=== PATIENT | male | born 1945 | race Caucasian/White ===

== ENCOUNTER 2020-05-20 10:49 | Outpatient (REF) | payer MEDICARE, SELFPAY | END 2020-05-20 10:50 | disposition home or self-care (01) | LOC: HO.LNP 10:49 | PROVIDERS: Visit Provider Internal Medicine | DX: Z20.828 Contact with and (suspected) exposure to other viral communicable diseases (principal) | CPT/HCPCS: U0003 ==

== ENCOUNTER 2020-06-18 14:29 | Outpatient (REF) | payer MEDICARE, SELFPAY ==
[2020-06-18 15:54] LABS: Influenza A PCR NEGATIVE (Negative); Influenza B PCR NEGATIVE (Negative); Resp Syncy Virus RNA Qual PCR NEGATIVE (Negative); SARS COV2 PCR INHOUSE NEGATIVE (Negative)
== END 2020-06-18 14:30 | disposition home or self-care (01) ==
LOC: HO.LNP 14:29
PROVIDERS: Visit Provider Internal Medicine
DX: Z20.828 Contact with and (suspected) exposure to other viral communicable diseases (principal)
CPT/HCPCS: 0241U

== ENCOUNTER 2021-04-09 09:05 | Emergency (ER) | payer MEDICARE, SELFPAY ==
--- NOTE | ~2021-04-09 | XR_ITS ---
EXAMINATION: XR SHOULDER, RIGHT CLINICAL INFORMATION: Fall, trauma, pain COMPARISON: None TECHNIQUE: Right shoulder is imaged in 4 views. FINDINGS: There is no fracture or dislocation or destructive process. There are mild degenerative changes glenohumeral joint with small spur inferior medial humeral head. There is some borderline spurring greater tuberosity. No visible rotator cuff calcifications. Right lung apex is well expanded and shows no pneumothorax or pleural reaction. XR/XR shoulder RT min 2V IMPRESSION: No fracture or dislocation.
[2021-04-09 09:19] VITALS: BP 117/57; PULSE 84; RESP 18; TEMP 36.5; O2SAT 96; BMI 25.0
--- NOTE | 2021-04-09 10:44 | ED_ITS ---
HPI - Extremity Problem General Chief complaint: Extremity Injury, Upper Stated complaint: rt shoulder pain - fall Time Seen by Provider: 04/09/21 10:44 Source: patient Limitations: no limitations History of Present Illness HPI Narrative: This is a 75-year-old male who tripped on the lawn this morning fell on his right shoulder. The patient cannot recall whether he broke his fall with his arm 1st or fell directly on his shoulder but he has pain around his lateral shoulder. Denies any head injury or neck pain. Denies any chest pain or shortness of breath. He denies any numbness or weakness or tingling in his right arm or hand. He has not noted any swelling to the area. He is not on any anticoagulants. Pain is moderate in severity, worse with arm elevation, aching Related Data Previous Rx's Medication Instructions Recorded ibuprofen 600 mg tablet 600 mg PO Q6H PRN #30 tab 04/09/21 Allergies Allergy/AdvReac Type Severity Reaction Status Date / Time niacin Allergy Intermediate RASH Verified 04/09/21 09:19 [From NIASPAN EXTENDED-RELEASE] Review of Systems Constitutional: Constitutional: Denies headache(s) ENT: Denies headache(s) Cardiovascular: Cardiovascular: Reports no additional cardiovascular complaints Respiratory: Respiratory: Reports no additional respiratory complaints Gastrointestinal: Gastrointestinal: Reports no additional gastrointestinal complaints Musculoskeletal: Musculoskeletal: Reports no additional musculoskeletal complaints Neurologic: Denies headache(s) [facility] Social History Social History Advance Directives: No Physical Exam Vital Signs: Vital Signs: Last Vital Signs Temp 97.7 F 04/09/21 09:19 Pulse 84 04/09/21 09:19 Resp 18 04/09/21 09:19 BP 117/57 L 04/09/21 09:19 Pulse Ox 96 04/09/21 09:19 Body Mass Index 25.0 Const: Other: Patient well-appearing, no distress, moves easily HENMT: Head: Yes normal to inspection Eyes: General: appearance normal, both eyes and all related structures Resp: Effort & Inspection: normal respiratory effort Auscultation: clear to auscultation bilaterally Cardio: Rhythm: regular rhythm Heart sounds: S1 normal heart sound present, S2 normal heart sound present, no gallops, no murmurs and no rubs Extrem: Other: Right shoulder with no point tenderness over the clavicle, AC joint, or glenohumeral joint. There is tenderness to the lateral shoulder over the humeral head but no ecchymosis, swelling, deformity. Humeral shaft, elbow, forearm, wrist, and hand atraumatic, nontender. Right hand neurovascular intact General: Yes normal to inspection MDM - Extremity (Nontraumatic) MDM Narrative Medical decision making narrative: Patient with a fall, injured right shoulder, has pain with movement. X-ray negative. Exam normal except for point tenderness over the humeral head. Recommend sling immobilization and ice pack, ibuprofen for 3-4 days, follow-up with orthopedics if not improved. Likely contusion, less likely rotator cuff tear. Imaging Data Shoulder x-ray: Radiologist's impression: FINDINGS: There is no fracture or dislocation or destructive process. There are mild degenerative changes glenohumeral joint with small spur inferior medial humeral head. There is some borderline spurring greater tuberosity. No visible rotator cuff calcifications. Right lung apex is well expanded and shows no pneumothorax or pleural reaction.? XR/XR shoulder RT min 2V IMPRESSION: No fracture or dislocation. Discharge Plan Discharge Clinical Impression: Contusion of shoulder, right Patient Disposition: Home, Self-Care Instructions: Contusion in Adults (ED) Additional Instructions: Wear the sling, and take ibuprofen as prescribed. Use an ice pack off and on. Try to rest the shoulder for the next 3-4 days. If still having significant pain in 4-5 days, follow-up with orthopedics. Rotator cuff tear cannot be ruled out with an x-ray, however given the nature of her fall and your area of tenderness, this seems more likely to be a contusion Prescriptions: New ibuprofen 600 mg tablet 600 mg PO Q6H PRN (Reason: pain) Qty: 30 RF: 0 Referrals: Jessica Chawla MD [Physician] - 1 week (As needed, if not improved) Interventions: ED Discharge Assessment Last Done: 04/09/21 10:55 Discharge Date/Time: 04/09/21 10:56
== END 2021-04-09 10:56 | disposition home or self-care (01) ==
PROVIDERS: Emergency Provider Emergency Medicine; PCP Internal Medicine
DX: S40.011A Contusion of right shoulder, initial encounter (principal); W01.0XXA Fall on same level from slipping, tripping and stumbling without subsequent striking against object, initial encounter; Y93.9 Activity, unspecified; Y92.89 Other specified places as the place of occurrence of the external cause; Y99.9 Unspecified external cause status
CPT/HCPCS: 73030; 99283

== ENCOUNTER 2021-10-05 00:23 | Emergency (ER) | payer MEDICARE, SELFPAY ==
--- NOTE | ~2021-10-05 | CT_ITS ---
EXAMINATION: CT SOFT TISSUE NECK WITH CONTRAST CLINICAL INFORMATION: Sore throat, rule out abscess COMPARISON: None TECHNIQUE: Following the intravenous administration of 60 mL of Omnipaque 350 intravenous contrast, helical imaging was performed in the axial plane with generation of coronal and sagittal reformatted images. This CT examination was performed using dose optimization techniques as appropriate, variously including the following: *Automated exposure control *Adjustment of mA and/or kV according to patient size (this includes techniques or standardized protocols for targeted exams where dose is matched to indication/reason for exam; i.e. extremities or head) *Use of iterative reconstruction technique DLP: 646 mGy-cm FINDINGS: No cervical adenopathy is identified. The parotid glands are homogeneous in attenuation. The submandibular glands are normal. Evaluation in the peritonsillar regions is limited due to streak artifact from dental hardware; no definite abscess is seen given this limitation. No retropharyngeal fluid collection is seen. Epiglottis appears unremarkable. The laryngeal structures appear unremarkable. The parapharyngeal fat is preserved. There are calcifications of the bilateral common carotid artery bifurcations which does not appear to result in significant stenosis. No extra mucosal soft tissue mass or fluid collection is seen. The thyroid gland is unremarkable. The superior mediastinum is unremarkable. There is a 3 mm right apical nodule on image 318/406. Tiny left upper lobe nodules appear calcified, favoring granulomas. The mastoid air cells and visualized portions of the paranasal sinuses are well-aerated. The temporomandibular joints are normal. There are moderate to severe degenerative changes in the cervical spine including disc space narrowing, endplate osteophyte formation, and facet arthropathy. The imaged portions of the brain parenchyma are unremarkable. CT/CT soft tissue neck w con IMPRESSION: 1. Limited assessment of the peritonsillar regions due to streak artifact from dental hardware. No definite abscess is seen this setting; however, if symptoms persist/worsen, consider short-term follow-up imaging. 2. Right apical 3 mm lung nodule. According to the UPDATED 2017 Fleischner Society recommendations, the advised follow-up imaging for solid nodules < 6 mm is: LOW RISK PATIENT: No routine follow-up. HIGH RISK PATIENT: Optional CT at 12 months.
[2021-10-05 01:14] VITALS: BP 141/83; PULSE 82; RESP 18; TEMP 37; O2SAT 96; BMI 31.9
--- NOTE | 2021-10-05 01:14 | ED.GENADULT ---
HPI - General Adult General Chief complaint: Upper Respiratory Symptoms Stated complaint: sorethroat Time Seen by Provider: 10/05/21 01:12 Source: patient Mode of arrival: ambulatory Limitations: no limitations History of Present Illness HPI narrative: 76 years old male came in for evaluation of sore throat. Sore throat for 1 day, no fever chills, no sick contact, patient is up-to-date on his COVID vaccination, no recent travel. No drooling, no shortness of breath, no coughing. Related Data Previous Rx's Medication Instructions Recorded ibuprofen 600 mg tablet 600 mg PO Q6H PRN #30 tab 04/09/21 Allergies Allergy/AdvReac Type Severity Reaction Status Date / Time niacin Allergy Intermediate RASH Verified 04/09/21 09:19 [From NIASPAN EXTENDED-RELEASE] Review of Systems Review of Systems: All other systems are reviewed and are negative Constitutional: Reports as per HPI and Reports no additional constitutional complaints Eyes: Reports as per HPI and Reports no additional eye complaints Reports system reviewed and no additional complaints, except as documented Cardiovascular: Reports as per HPI and Reports no additional cardiovascular complaints Respiratory: Reports as per HPI and Reports no additional respiratory complaints Gastrointestinal: Reports as per HPI and Reports no additional gastrointestinal complaints Genitourinary: Reports no additional female genitourinary complaints Musculoskeletal: Reports no additional musculoskeletal complaints Skin/Breast: Reports system reviewed and no additional complaints, except as docu Psychiatric: Reports no additional psychiatric complaints Endocrine: Reports no additional endocrine complaints Hematologic/Lymphatic: Reports no additional hematologic/lymphatic complaints Allergic/Immunologic: Reports no additional allergic/immunologic complaints Reports system reviewed and no additional complaints, except as documented and Reports Abnormal speech present [facility] Past Medical History Medical History (Updated 10/05/21 @ 03:56 by Lizzeth Davis MD) No known health problems Surgical History (Updated 10/05/21 @ 01:23 by Ariella Merino) No history of previous surgery Social History Social History Alcohol intake: never Patient Tobacco Use Status: Never used Tobacco Use of substances other than those prescribed or required for medical reasons: No Advance Directives: No Advance Directives Information Provided: No Physical Exam ED Vital Signs: Vital Signs - 24 hr 10/05/21 01:14 10/05/21 02:00 10/05/21 02:28 Temperature 98.6 F 98.9 F Pulse Rate 82 78 Respiratory Rate 18 12 Blood Pressure 141/83 H 124/86 Pulse Oximetry 96 95 95 BMI result Body Mass Index 31.9 Vital signs have been reviewed as appeared to be correct. Blood pressure normal. Heart rate normal. Respiration rate normal. Temperature normal. Oxygen saturation normal. Appearance: Alert. Oriented X3. No acute distress. Head: Normal external exam. Normocephalic. Atraumatic. No Gonzalez signs noted. No raccoon eyes noted Eyes: PERRLA. EOMI. Conjunctiva and sclera normal. Eyelids normal. ENT: TM's Normal. Pharynx normal. Uvula midline. Moist mucous membranes. No trismus noted. No drooling noted. No muffled voice noted. Neck: Normal inspection. Neck supple. FROM. No adenopathy. Thyroid Normal. No meningeal signs. No neck mass noted. CVS: Normal heart rate and rhythm. Heart sound normal. No murmurs noted. Pulses normal throughout. Respiratory: No respiratory distress. Painless inspiration. Breath sounds normal. No wheezes/rales/rhonchi noted. Chest nontender. No accessory muscle usage noted or decreased air movement noted. Abdomen: Soft and nontender. Bowel sounds normal in all 4 quadrants. No distention noted. No organomegaly noted. No visible injury noted. Back: No CVA tenderness. Full range of motion noted. Skin: Skin warm and dry. Normal skin color. Normal skin turgor. No rashes/lesions/lacerations noted. Extremities: No lower extremity edema. Extremities exhibit normal range of motion. Extremities nontender. Neuro: Oriented X 3. Cranial nerve exam: II-XII are grossly intact No motor deficit. No sensory deficit. Reflexes normal. Course Course Course Narrative: Assessment and plan. 76-year-old male came in for evaluation of sore throat, patient has a negative strep, negative RSV, negative flu, CT of the neck limited due to artifact of a dental denture but no neck abscess and patent airway. Will reassure recommend NSAIDs for symptoms. Medical Decision Making Lab Data Lab results reviewed: Yes I reviewed the patient's lab results. Result diagrams: 10/05/21 01:55 10/05/21 01:55 Labs: Lab Results 10/05/21 10/05/21 10/05/21 Range/Units 01:55 01:55 01:55 WBC 8.6 (4.8-10.8) X10*3/uL RBC 3.89 L (4.60-5.80) X10*6/uL Hgb 12.5 L (14.0-18.0) g/dl Hct 36.6 L (42.0-52.0) % MCV 94.1 (80.0-98.0) fL MCH 32.1 (27.0-33.0) pg MCHC 34.2 (31.0-36.0) g/dl RDW 11.9 (11.0-16.0) % Plt Count 157 L (160-400) X10*3/uL MPV 10.4 (9.4-12.4) fL Immature Gran % (Auto) 0.3 (0.0-0.4) % Neut % (Auto) 68.9 (45-73) % Lymph % (Auto) 16.2 L (20-40) % [place] % (Auto) 9.9 (2-11) % Eos % (Auto) 4.1 H (0-4) % Baso % (Auto) 0.6 (0-2) % Lymph # (Auto) 1.4 (1.2-4.9) X10*3/uL [place] # (Auto) 0.9 (0.1-1.2) X10*3/uL Eos # (Auto) 0.4 (0.0-0.4) X10*3/uL Baso # (Auto) 0.1 (0.0-0.2) X10*3/uL Abs Immat Gran (auto) 0.03 (0.00-0.03) X10*3/uL Absolute Neuts (auto) 5.9 (2.0-8.3) x10*3/uL Absolute Nucleated RBC 0.000 (0.0-0.012) X10*3/uL Nucleated RBC % (auto) 0.0 (0.0-0.2) /100WBC Sodium 138 (135-145) mmol/L Potassium 4.2 (3.3-5.1) mmol/L Chloride 108 (96-108) mmol/L Carbon Dioxide 23 (22-29) mmol/L Anion Gap 11 L (12-20) BUN 25 H (9-16) mg/dL Creatinine 0.98 (0.5-1.4) mg/dL Estim Creat Clear Calc 74.0 Estimated GFR > 60 Random Glucose 124 H (60-115) mg/dL Calcium 8.8 (8.4-10.2) mg/dL Troponin I High Sens 3.9 (<3.5-35.0) ng/L Influenza Type A (PCR) (Negative) Influenza Type B (PCR) (Negative) RSV RNA Qual (PCR) (Negative) SARS-CoV-2 RNA (RT-PCR) (Negative) S. pyogenes GrpA HERNANDEZ (Negative) 10/05/21 10/05/21 Range/Units 01:55 01:55 WBC (4.8-10.8) X10*3/uL RBC (4.60-5.80) X10*6/uL Hgb (14.0-18.0) g/dl Hct (42.0-52.0) % MCV (80.0-98.0) fL MCH (27.0-33.0) pg MCHC (31.0-36.0) g/dl RDW (11.0-16.0) % Plt Count (160-400) X10*3/uL MPV (9.4-12.4) fL Immature Gran % (Auto) (0.0-0.4) % Neut % (Auto) (45-73) % Lymph % (Auto) (20-40) % [place] % (Auto) (2-11) % Eos % (Auto) (0-4) % Baso % (Auto) (0-2) % Lymph # (Auto) (1.2-4.9) X10*3/uL [place] # (Auto) (0.1-1.2) X10*3/uL Eos # (Auto) (0.0-0.4) X10*3/uL Baso # (Auto) (0.0-0.2) X10*3/uL Abs Immat Gran (auto) (0.00-0.03) X10*3/uL Absolute Neuts (auto) (2.0-8.3) x10*3/uL Absolute Nucleated RBC (0.0-0.012) X10*3/uL Nucleated RBC % (auto) (0.0-0.2) /100WBC Sodium (135-145) mmol/L Potassium (3.3-5.1) mmol/L Chloride (96-108) mmol/L Carbon Dioxide (22-29) mmol/L Anion Gap (12-20) BUN (9-16) mg/dL Creatinine (0.5-1.4) mg/dL Estim Creat Clear Calc Estimated GFR Random Glucose (60-115) mg/dL Calcium (8.4-10.2) mg/dL Troponin I High Sens (<3.5-35.0) ng/L Influenza Type A (PCR) NEGATIVE (Negative) Influenza Type B (PCR) NEGATIVE (Negative) RSV RNA Qual (PCR) NEGATIVE (Negative) SARS-CoV-2 RNA (RT-PCR) NEGATIVE (Negative) S. pyogenes GrpA HERNANDEZ Negative (Negative) Imaging Data Soft tissue neck CT: Attestation: I personally reviewed and interpreted this imaging study as follows: Radiologist's impression: 1.? Limited assessment of the peritonsillar regions due to streak artifact from dental hardware. No definite abscess is seen this setting; however, if symptoms persist/worsen, consider short-term follow-up imaging. 2.? Right apical 3 mm lung nodule. According to the UPDATED 2017 Fleischner Society recommendations, the advised follow-up imaging for solid nodules < 6 mm is: Discharge Plan Discharge Clinical Impression: Pharyngitis Patient Disposition: Home, Self-Care Instructions: Pharyngitis (ED) Prescriptions: No Action ibuprofen 600 mg tablet 600 mg PO Q6H PRN (Reason: pain) Qty: 30 0RF Referrals: Froy Fernando MD [Primary Care Provider] -
[2021-10-05 02:00] VITALS: O2SAT 95
[2021-10-05 02:05] LABS: MANUAL DIFF FLAG NO
[2021-10-05 02:06] LABS: Basophils Absolute Auto 0.1 X10*3/uL (0.0-0.2); Basophils Percent Auto 0.6 % (0-2); Eosinophils Absolute Auto 0.4 X10*3/uL (0.0-0.4); Eosinophils Percent Auto 4.1 % (0-4); Hematocrit 36.6 % (42.0-52.0); Hemoglobin 12.5 g/dl (14.0-18.0); Imm Gran Abs Auto 0.03 X10*3/uL (0.00-0.03); Imm Gran Pct Auto 0.3 % (0.0-0.4); Lymphocytes Absolute Auto 1.4 X10*3/uL (1.2-4.9); Lymphocytes Percent Auto 16.2 % (20-40); Mean Corpuscular HGB Conc 34.2 g/dl (31.0-36.0); Mean Corpuscular Hemoglobin 32.1 pg (27.0-33.0); Mean Corpuscular Volume 94.1 fL (80.0-98.0); Mean Platelet Volume 10.4 fL (9.4-12.4); Monocytes Absolute Auto 0.9 X10*3/uL (0.1-1.2); Monocytes Percent Auto 9.9 % (2-11); Neutrophils Absolute Auto 5.9 x10*3/uL (2.0-8.3); Neutrophils Percent Auto 68.9 % (45-73); Platelet Count 157 X10*3/uL (160-400); Red Blood Count 3.89 X10*6/uL (4.60-5.80); Red Cell Distribution Width 11.9 % (11.0-16.0); White Blood Count 8.6 X10*3/uL (4.8-10.8)
[2021-10-05 02:10] LABS: Strep A Nucleic Acid Negative (Negative)
[2021-10-05 02:20] LABS: Anion Gap 11 (12-20); Blood Urea Nitrogen 25 mg/dL (9-16); Calcium 8.8 mg/dL (8.4-10.2); Carbon Dioxide 23 mmol/L (22-29); Chloride 108 mmol/L (96-108); Estimated Glomerular Filt Rate > 60; Glucose Random 124 mg/dL (60-115); Potassium 4.2 mmol/L (3.3-5.1); Sodium 138 mmol/L (135-145)
[2021-10-05 02:27] LABS: Troponin-I High Sensitivity 3.9 ng/L (<3.5-35.0)
[2021-10-05 02:28] VITALS: BP 124/86; PULSE 78; RESP 12; TEMP 37.2; O2SAT 95
[2021-10-05 02:44] LABS: Influenza A PCR NEGATIVE (Negative); Influenza B PCR NEGATIVE (Negative); Resp Syncy Virus RNA Qual PCR NEGATIVE (Negative); SARS COV2 PCR INHOUSE NEGATIVE (Negative)
[2021-10-05] MEDS: iohexoL 350 MG/ML 100 ML INFUS..BTL 60 ML IV (02:46)
== END 2021-10-05 04:06 | disposition home or self-care (01) ==
PROVIDERS: Emergency Provider Emergency Medicine; PCP Internal Medicine
DX: J02.9 Acute pharyngitis, unspecified (principal); Z20.822 Contact with and (suspected) exposure to COVID-19
CPT/HCPCS: 0241U; 36415; 70491; 80048; 84484; 85025; 87651; 99284; 99285; Q9967

== ENCOUNTER 2022-07-05 05:53 | Emergency (ER) | payer MEDICARE, SELFPAY ==
[2022-07-05 05:58] VITALS: BP 140/78; PULSE 79; RESP 18; TEMP 36.6; O2SAT 96; BMI 33.4
--- OUTSIDE RECORDS SUMMARY | 2022-07-05 06:16 | XMS_ITS | Continuity of Care Document ---
:1945 Author Organization [facility] Address [address] [place] [phone]- Care Team Providers Name Role Phone Froy Fernando MD Primary Care Physician [place] [facility] [place]): 05/05/20 - 06/04/20 [facility] [address] [place] [id number] Allergies, Adverse Reactions, Alerts Substance Reaction Severity Status Niaspan ER Active Medications aspirin buffered 325 mg oral tablet 1 tablet = 325 mg, By Mouth, Every 4 hours, 0 Refills, Maintenance Start Date: 10/16/12 Status: Orderedatorvastatin 80 mg oral tablet 1 tablet = 80 mg, By Mouth, Daily at bedtime, # 90 tablet, 3 Refills, Maintenance, 09/17/19 16:35:00EDT, Tablet, [facility], 173, cm, 09/02/19 14:38:00 EDT, Height, 91.3, kg, 09/02/19 14:38:00 EDT, Dry Weight Start Date: 09/17/19 Stop Date: 09/11/20 Status: Orderedchlorhexidine topical 0.12% liquid 15 mL = 0.018 Gm, By Mouth, Daily in AM, 0 Refills, Maintenance, 05/29/14 15:27:16 Start Date: 05/29/14 Status: OrderedCialis 20 mg oral tablet 1 tablet = 20 mg, By Mouth, Daily, PRN erectile dysfunction, as needed only half of the tablet in 24hours. do not take it if any angina, # 10 tablet, 3 Refills, Maintenance, 04/05/18 9:54:48 EDT, Tablet Start Date: 04/05/18 Status: OrderedCranberry 0 Refills, Maintenance, 11/05/15 9:29:09 Start Date: 11/05/15 Status: OrderedFish Oil 1000 mg oral capsule 1 capsule = 1,000 mg, By Mouth, Daily, 0 Refills, Maintenance Start Date: 06/23/12 Status: Orderedlisinopril 5 mg oral tablet 5 mg, 1, tablet, By Mouth, Daily, # 90 tablet, Refills 3, Tot. Refills 3, Maintenance, 09/17/19 16:35:00 EDT, Route to Pharmacy Electronically, [facility], 173, cm, 09/02/19 14:38:00 EDT, Height, 91.3, kg, 09/02/19 14:38:00 EDT, Dry Weight Start Date: 09/17/19 Stop Date: 09/11/20 Status: Orderedmetoprolol 100 mg oral tablet, extended release 150 mg, 1.5, tablet, By Mouth, Daily, # 135 tablet, Refills 3, Tot. Refills 3, Maintenance, 10/02/2012:03:00 EDT, Route to Pharmacy Electronically, [facility], 173, cm, 09/02/19 14:38:00 EDT, Height, 91.3, kg, 09/02/19 14:38:00 EDT, Dry... Start Date: 10/03/19 Stop Date: 09/27/20 Status: OrderedPrevident 1 applicator, Topically, Daily at bedtime, 0 Refills, Maintenance, 05/29/14 15:27:22 Start Date: 05/29/14 Status: OrderedZetia 10 mg oral tablet 1 tablet = 10 mg, By Mouth, Daily, # 90 tablet, 3 Refills, Maintenance, 02/06/20 12:42:00 EDT, Tablet, [facility], 173, cm, 09/02/19 14:38:00 EDT, Height, 91.3, kg, 09/02/19 14:38:00 EDT, Dry Weight Start Date: 02/06/20 Stop Date: 01/31/21 Status: Ordered Problem List Condition Effective Dates Status Health Status Informant Coronary artery disease(Confirmed) Active Hyperlipidemia(Confirmed) Active Old myocardial infarction(Confirmed) Active Social History Social History Type Response Smoking Status Never smoker; Tobacco user i n household: No entered on: 04/05/18 Sex
--- OUTSIDE RECORDS SUMMARY | 2022-07-05 06:16 | XMS_ITS | Continuity of Care Document ---
:1945 Author Organization [facility] Address [address] [place] [phone]- Care Team Providers Name Role Phone Froy Fernando MD Primary Care Physician Encounter [facility] [place] Date(s): 08/08/20 - 09/07/20 [facility] [address] [place] [id number] Attending Physician: Arianna Sierra Admitting Physician: AdmArianna curry Referring Physician: AdmtrArianna Allergies, Adverse Reactions, Alerts Substance Reaction Severity [...] 09/17/19 16:35:00 EDT, Route to Pharmacy Electronically, [facility], 173, cm, 09/02/19 14:38:00 EDT, Height, 91.3, kg, 09/02/19 14:38:00 EDT, Dry Weight Start Date: 09/17/19 Stop Date: 09/11/20 Status: Orderedmetoprolol 100 mg oral tablet, extended release 150 mg, 1.5, tablet, By Mouth, Daily, # 135 tablet, Refills 3, Tot. Refills 3, Maintenance, 10/02/2012:03:00 EDT, Route to Pharmacy Electronically, [facility] #[facility], 173, cm, 09/02/19 14:38:00 EDT, Height, 91.3, kg, 09/02/19 14:38:00 EDT, Dry... Start Date: 10/03/19 Stop Date: 09/27/20 Status: OrderedPrevident 1 applicator, Topically, Daily at bedtime, 0 Refills, Maintenance, 05/29/14 15:27:22 Start Date: 05/29/14 Status: OrderedZetia 10 mg oral tablet 1 tablet = 10 mg, By Mouth, Daily, # 90 tablet, 3 Refills, Maintenance, 02/06/20 12:42:00 EDT, Tablet, [facility], 173, cm, 09/02/19 14:38:00 EDT, [...]
--- OUTSIDE RECORDS SUMMARY | 2022-07-05 06:16 | XMS_ITS | Continuity of Care Document ---
:1945 Author Organization [facility] Address [address] [place] [id number]- Care Team Providers Name Role Phone Froy Fernando MD Primary Care Physician [place] [facility] [place]20 [facility] [address] [place] [id number] Allergies, Adverse Reactions, Alerts Substance Reaction Severity Status Niaspan ER Active Medications aspirin buffered 325 mg oral tablet 1 tablet = 325 mg, By Mouth, Daily, 0 Refills, Maintenance, 10/16/12 11:03:18 EDT Start Date: 10/16/12 Status: Orderedatorvastatin 80 mg oral tablet 1 tablet = 80 mg, By Mouth, Daily at bedtime, # 90 tablet, 3 Refills, Maintenance, 10/22/20 11:31:00EDT, Tablet, [facility], 173, cm, 09/17/20 12:44:00 EDT, Height, 91.3, kg, 09/02/19 14:38:00 EDT, Dry Weight Start Date: 10/22/20 Stop Date: 10/17/21 Status: Orderedchlorhexidine topical 0.12% liquid 15 mL [...] 9:54:48 EDT, Tablet Start Date: 04/05/18 Status: OrderedCialis 20 mg oral tablet 1 tablet = 20 mg, By Mouth, Daily, PRN as needed for erectile dysfunction, # 5 tablet, 0 Refills, Maintenance, 09/17/20 13:00:00 EDT, Tablet, Partial fill upon patient request if the prescription is for a schedule II opioid drug. Start Date: 09/17/20 Status: OrderedCranberry 0 Refills, Maintenance, 11/05/15 9:29:09 Start Date: 11/05/15 Status: OrderedFish Oil 1000 mg oral capsule 1 capsule = 1,000 mg, By Mouth, Daily, 0 Refills, Maintenance Start Date: 06/23/12 Status: Orderedlisinopril 5 mg oral tablet 5 mg, 1, tablet, By Mouth, Daily, # 90 tablet, Refills 3, Tot. Refills 3, Maintenance, 10/23/20 15:49:00 EDT, Route to Pharmacy Electronically, [facility], 173, cm, 09/17/20 12:44:00 EDT, Height, 91.3, kg, 09/02/19 14:38:00 EDT, Dry Weight Start Date: 10/23/20 Stop Date: 10/18/21 Status: Orderedmetoprolol 100 mg oral tablet, extended release 150 mg, 1.5, tablet, By Mouth, Daily, # 135 tablet, Refills 3, Tot. Refills 3, Maintenance, 10/02/2012:03:00 EDT, Route to Pharmacy Electronically, [facility], 173, cm, 09/02/19 14:38:00 EDT, Height, 91.3, kg, 09/02/19 14:38:00 EDT, Dry... Start Date: 10/03/19 Stop Date: 09/27/20 Status: OrderedPrevident 1 applicator, Topically, Daily at bedtime, 0 Refills, Maintenance, 05/29/14 15:27:22 Start Date: 05/29/14 Status: OrderedVitamin D3 1000 intl units oral tablet 1 tablet = 1,000 International_Units, By Mouth, Daily, # 30 tablet, 0 Refills, Maintenance, 09/18/2111:48:00 EDT, Tablet, Partial fill upon patient request if the prescription is for a schedule II opioid drug. Start Date: 09/17/20 Status: OrderedVitamin D3 1000 intl units oral tablet 1 tablet = 1,000 International_Units, By Mouth, Daily, # 30 tablet, 0 Refills, Maintenance, 09/17/2112:00:00 EDT, Tablet, Partial fill upon patient request if the prescription is for a schedule II opioid drug. Start Date: 09/17/20 Status: OrderedZetia 10 mg oral tablet 1 tablet = 10 mg, By Mouth, Daily, # 90 tablet, 3 Refills, Maintenance, 10/20/20 9:47:00 EDT, Tablet, [facility], 173, cm, 09/17/20 12:44:00 EDT, Height, 91.3, kg, 09/02/19 14:38:00 EDT, Dry Weight Start Date: 10/20/20 Stop Date: 10/15/21 Status: Ordered Problem List Condition Effective Dates Status Health Status Informant Coronary artery disease(Confirmed) Active Hyperlipidemia(Confirmed) Active Old myocardial infarction(Confirmed) Active Social History Social History Type Response Smoking Status Never smoker; Tobacco user i n household: No entered on: 04/05/18 Sex
--- OUTSIDE RECORDS SUMMARY | 2022-07-05 06:16 | XMS_ITS | Continuity of Care Document ---
:1945 Author Organization [facility] Address [address] [place] [phone]- Care Team Providers Name Role Phone Froy Fernando MD Primary Care Physician Encounter [facility] Date(s): 10/22/20 - 11/21/20 [facility] [address] [place] [id number] Allergies, Adverse Reactions, Alerts Substance Reaction Severity [...] 10/23/20 15:49:00 EDT, Route to Pharmacy Electronically, [facility], 173, cm, 09/17/20 12:44:00 EDT, Height, 91.3, kg, 09/02/19 14:38:00 EDT, Dry Weight Start Date: 10/23/20 Stop Date: 10/18/21 Status: Orderedmetoprolol 100 mg oral tablet, extended release 150 mg, 1.5, tablet, By Mouth, Daily, # 135 tablet, Refills 3, Tot. Refills 3, Maintenance, 10/02/2012:03:00 EDT, Route to Pharmacy Electronically, [facility], 173, cm, 09/02/19 14:38:00 EDT, [...]
--- OUTSIDE RECORDS SUMMARY | 2022-07-05 06:16 | XMS_ITS | Continuity of Care Document ---
:1945 Author Organization [facility] Address [address] [place] [address]- Care Team Providers Name Role Phone Froy Fernando MD Primary Care Physician Encounter [facility] [place] Date(s): 12/12/20 - 01/11/21 [facility] [address] [place] [id number] Allergies, Adverse Reactions, Alerts Substance [...] 10/23/20 15:49:00 EDT, Route to Pharmacy Electronically, [facility], 173, cm, 09/17/20 12:44:00 EDT, Height, 91.3, kg, 09/02/19 14:38:00 EDT, Dry Weight Start Date: 10/23/20 Stop Date: 10/18/21 Status: Orderedmetoprolol 100 mg oral tablet, extended release 150 mg, 1.5, tablet, By Mouth, Daily, # 135 tablet, Refills 3, Tot. Refills 3, Maintenance, 12/12/2113:15:00 EDT, Route to Pharmacy Electronically, [facility], 173, cm, 09/17/20 12:44:00 EDT, Height, 91.3, kg, 09/02/19 14:38:00 EDT, Dry... Start Date: 12/12/20 Stop Date: 12/07/21 Status: OrderedPrevident 1 applicator, Topically, Daily at [...]
--- OUTSIDE RECORDS SUMMARY | 2022-07-05 06:16 | XMS_ITS | Continuity of Care Document ---
:1945 Author Organization [facility] Address [address] [place] [address]- Care Team Providers Name Role Phone Froy Fernando MD Primary Care Physician Encounter [facility] [place] Date(s): 06/23/20 - 09/07/20 [facility] [address] [place] [id number] Attending Physician: Kathy Brink NP Admitting Physician: Kathy Brink NP Allergies, Adverse Reactions, Alerts Substance Reaction Severity [...] 09/17/19 16:35:00 EDT, Route to Pharmacy Electronically, [facility], 173, cm, 09/02/19 14:38:00 EDT, Height, 91.3, kg, 09/02/19 14:38:00 EDT, Dry Weight Start Date: 09/17/19 Stop Date: 09/11/20 Status: Orderedmetoprolol 100 mg oral tablet, extended release 150 mg, 1.5, tablet, By Mouth, Daily, # 135 tablet, Refills 3, Tot. Refills 3, Maintenance, 10/02/2012:03:00 EDT, Route to Pharmacy Electronically, [facility], 173, cm, 09/02/19 14:38:00 EDT, Height, 91.3, kg, 09/02/19 14:38:00 EDT, Dry... Start Date: 10/03/19 Stop Date: 09/27/20 Status: OrderedPrevident 1 applicator, Topically, Daily at bedtime, 0 Refills, Maintenance, 05/29/14 15:27:22 Start Date: 05/29/14 Status: OrderedZetia 10 mg oral tablet 1 tablet = 10 mg, By Mouth, Daily, # 90 tablet, 3 Refills, Maintenance, 02/06/20 12:42:00 EDT, Tablet, [facility], 173, cm, 09/02/19 14:38:00 EDT, [...]
--- OUTSIDE RECORDS SUMMARY | 2022-07-05 06:16 | XMS_ITS | Continuity of Care Document ---
:1945 Author Organization [facility] Address [address] [place] [address]- Care Team Providers Name Role Phone Froy Fernando MD Primary Care Physician Encounter [facility] Date(s): 09/21/21 - 10/21/21 [facility] [address] [place] [address]- [place] Allergies, Adverse Reactions, Alerts Substance Reaction Severity [...] Maintenance, 05/29/14 15:27:16 Start Date: 05/29/14 Status: OrderedCranberry 0 Refills, Maintenance, 11/05/15 9:29:09 Start Date: 11/05/15 Status: OrderedFish Oil 1000 mg oral capsule 1 capsule = 1,000 mg, By Mouth, Daily, 0 Refills, Maintenance Start Date: 06/23/12 Status: Orderedlisinopril 2.5 mg oral tablet 2.5 mg, 1, tablet, By Mouth, Daily, # 90 tablet, Refills 3, Tot. Refills 3, Maintenance, 10/15/21 7:39:00 EDT, Route to Pharmacy Electronically, [facility], Partial fill upon patient request if the prescription is for a schedule II opioi... Start Date: 10/15/21 Stop Date: 10/10/22 Status: Orderedmetoprolol 100 mg oral tablet, extended release 150 mg, 1.5, tablet, By Mouth, Daily, # 135 tablet, Refills 3, Tot. Refills 3, Maintenance, 12/12/2113:15:00 EDT, Route to Pharmacy Electronically, [facility], 173, cm, 09/17/20 12:44:00 EDT, [...] Daily, # 90 tablet, 3 Refills, Maintenance, 01/28/21 13:49:00 EDT, Tablet Start Date: 01/28/21 Stop Date: 01/23/22 Status: Ordered Problem List Condition Effective Dates Status Health Status Informant Coronary artery disease(Confirmed) Active Hyperlipidemia(Confirmed) Active Obese class I(Confirmed) Active Old myocardial infarction(Confirmed) Active Social History Social History Type Response Smoking Status Never smoker; Tobacco user i n household: No entered on: 04/05/18 Sex
--- OUTSIDE RECORDS SUMMARY | 2022-07-05 06:16 | XMS_ITS | Continuity of Care Document ---
:1945 Author Organization [facility] Address [address] [place] [address]- Care Team Providers Name Role Phone Froy Fernando MD Primary Care Physician Encounter [facility] Date(s): 11/25/21 - 12/25/21 [facility] [address] [place] [address]- [place] Allergies, Adverse Reactions, Alerts Substance Reaction Severity Status Niaspan ER Active Medications aspirin buffered 325 mg oral tablet 1 tablet = 325 mg, By Mouth, Daily, 0 Refills, Maintenance, 10/16/12 11:03:18 EDT Start Date: 10/16/12 Status: Orderedatorvastatin 80 mg oral tablet 1 tablet = 80 mg, By Mouth, Daily at bedtime, # 90 tablet, 3 Refills, Maintenance, 11/25/21 12:25:00EDT, Tablet, [facility], 173, cm, 09/16/21 10:24:00 EDT, Height Start Date: 11/25/21 Stop Date: 11/20/22 Status: Orderedchlorhexidine topical 0.12% liquid 15 mL [...] Maintenance, 12/12/2113:15:00 EDT, Route to Pharmacy Electronically, [facility], 173, cm, [...]
--- OUTSIDE RECORDS SUMMARY | 2022-07-05 06:16 | XMS_ITS | Continuity of Care Document ---
:1945 Author Organization [facility] Address [address] [place] [address]- Care Team Providers Name Role Phone Froy Fernando MD Primary Care Physician Encounter [facility] Date(s): 10/01/21 - 11/07/21 [facility] [address] [place] [address]- Attending Physician: Óscar CARRION, Jason Admitting Physician: Óscar CARRION, Jason Referring Physician: Froy Fernando MD Allergies, Adverse Reactions, Alerts Substance Reaction Severity [...] 10/15/21 7:39:00 EDT, Route to Pharmacy Electronically, [facility], Partial fill upon patient request if the prescription is for a schedule II opioi... Start Date: 10/15/21 Stop Date: 10/10/22 Status: Orderedmetoprolol 100 mg oral tablet, extended release 150 mg, 1.5, tablet, By Mouth, Daily, # 135 tablet, Refills 3, Tot. Refills 3, Maintenance, 12/12/2113:15:00 EDT, Route to Pharmacy Electronically, [facility], 173, cm, 09/17/20 12:44:00 EDT, [...]
--- OUTSIDE RECORDS SUMMARY | 2022-07-05 06:16 | XMS_ITS | Continuity of Care Document ---
:1945 Author Organization [facility] Address [address] [place] [address]- Care Team Providers Name Role Phone Froy Fernando MD Primary Care Physician En[place] [facility] Date(s): 01/22/20 - 02/21/20 [facility] [address] [place] [phone]- [facility] Allergies, Adverse Reactions, Alerts Substance Reaction Severity [...] 09/17/19 16:35:00 EDT, Route to Pharmacy Electronically, [facility], 173, cm, 09/02/19 14:38:00 EDT, Height, 91.3, kg, 09/02/19 14:38:00 EDT, Dry Weight Start Date: 09/17/19 Stop Date: 09/11/20 Status: Orderedmetoprolol 100 mg oral tablet, extended release 150 mg, 1.5, tablet, By Mouth, Daily, # 135 tablet, Refills 3, Tot. Refills 3, Maintenance, 10/02/2012:03:00 EDT, Route to Pharmacy Electronically, [facility], 173, cm, 09/02/19 14:38:00 EDT, Height, 91.3, kg, 09/02/19 14:38:00 EDT, Dry... Start Date: 10/03/19 Stop Date: 09/27/20 Status: OrderedPrevident 1 applicator, Topically, Daily at bedtime, 0 Refills, Maintenance, 05/29/14 15:27:22 Start Date: 05/29/14 Status: OrderedZetia 10 mg oral tablet 1 tablet = 10 mg, By Mouth, Daily, # 90 tablet, 3 Refills, Maintenance, 02/06/20 12:42:00 EDT, Tablet, [facility], 173, cm, 09/02/19 14:38:00 EDT, [...]
--- OUTSIDE RECORDS SUMMARY | 2022-07-05 06:16 | XMS_ITS | Continuity of Care Document ---
:1945 Author Organization [facility] Address [address] [place] [address]- Care Team Providers Name Role Phone Froy Fernando MD Primary Care Physician Encounter [facility] [place] Date(s): 03/21/19 - 06/22/19 [facility] [address] [place] [address]- [facility] Attending Physician: Jason Cantrell MD Admitting Physician: Jason Cantrell MD Referring Physician: Froy Fernando MD Allergies, Adverse Reactions, Alerts Substance Reaction Severity Status Niaspan ER Active Medications aspirin buffered 325 mg oral tablet 1 tablet = 325 mg, By Mouth, Every 4 hours, 0 Refills, Maintenance Start Date: 10/16/12 Status: Orderedatorvastatin 80 mg oral tablet 1 tablet = 80 mg, By Mouth, Daily at bedtime, # 90 tablet, 3 Refills, Maintenance, Tablet, Route to Pharmacy Electronically, [id number], [facility] Start Date: 09/07/18 Stop Date: 09/02/19 Status: Orderedchlorhexidine topical 0.12% liquid 15 mL [...] tablet, Refills 3, Tot. Refills 3, Maintenance, 09/07/18 14:01:48 EDT, Route to Pharmacy Electronically, [id number], [facility] Start Date: 09/07/18 Stop Date: 09/02/19 Status: Orderedmetoprolol 100 mg oral tablet, extended release 150 mg, 1.5, tablet, By Mouth, Daily, # 135 tablet, Refills 3, Tot. Refills 3, Maintenance, 10/06/1913:41:54 EDT, Route to Pharmacy Electronically, [id number], [facility] Start Date: 10/06/18 Stop Date: 10/01/19 Status: OrderedPrevident 1 applicator, Topically, Daily at bedtime, 0 Refills, Maintenance, 05/29/14 15:27:22 Start Date: 05/29/14 Status: OrderedZetia 10 mg oral tablet 1 tablet = 10 mg, By Mouth, Daily, # 30 tablet, 0 Refills, Maintenance, 06/22/19 10:50:00 EST, Tablet, [facility], 175, cm, 06/06/19 9:53:00 EST, Height Start Date: 06/22/19 Stop Date: 07/22/19 Status: Ordered Problem List Condition Effective Dates Status Health Status Informant Coronary artery disease(Confirmed) Active Hyperlipidemia(Confirmed) Active Old myocardial infarction(Confirmed) Active Social History Social History Type Response Smoking Status Never smoker; Tobacco user i n household: No entered on: 04/05/18 Sex
--- OUTSIDE RECORDS SUMMARY | 2022-07-05 06:16 | XMS_ITS | Continuity of Care Document ---
:1945 Author Organization [facility] Address [address] [place] [address]- Care Team Providers Name Role Phone Froy Fernando MD Primary Care Physician En[place] [facility] [place] Date(s): 05/04/22 - 06/03/22 [facility] [address] [place] [address]- [place] Allergies, Adverse Reactions, Alerts Substance Reaction [...] tablet, Refills 3, Tot. Refills 3, Maintenance, 01/13/2211:16:00 EDT, Route to Pharmacy Electronically, [facility], 173, cm, 09/16/21 10:24:00 EDT, Height Start Date: 01/13/22 Stop Date: 01/08/23 Status: OrderedPrevident 1 applicator, Topically, Daily at [...] Daily, # 90 tablet, 3 Refills, Maintenance, 01/13/22 11:28:00 EDT, Tablet Start Date: 01/13/22 Stop Date: 01/08/23 Status: Ordered Problem List Condition Confirmation Course Effective Dates Status Health I nformant Status Coronary artery Confirmed Active disease Hyperlipidemia Confirmed Active Obese class I Confirmed Active Old myocardial Confirmed Active infarction Social History Social History Type Response Smoking Status Never smoker; Tobacco user i n household: No entered on: 04/05/18 Sex Patient Care team information Care Team PersonnelName: Froy Fernando MD Position: [facility] Outreach Member Role: PCP Address: Address: [address] [place] [address]- Care Team Related PersonsName: MILLIE RICHTER Address: [address] [address]
--- OUTSIDE RECORDS SUMMARY | 2022-07-05 06:16 | XMS_ITS | Continuity of Care Document ---
:1945 Author Organization [facility] Address [address] [place] [address]- Care Team Providers Name Role Phone Froy Fernando MD Primary Care Physician Encounter [facility] Date(s): 01/06/21 - 02/05/21 [facility] [address] [place] [id number] Allergies, Adverse Reactions, Alerts Substance Reaction [...] 10/23/20 15:49:00 EDT, Route to Pharmacy Electronically, [facility], 173, cm, 09/17/20 12:44:00 EDT, Height, 91.3, kg, 09/02/19 14:38:00 EDT, Dry Weight Start Date: 10/23/20 Stop Date: 10/18/21 Status: Orderedmetoprolol 100 mg oral tablet, extended release 150 mg, 1.5, tablet, By Mouth, Daily, # 135 tablet, Refills 3, Tot. Refills 3, Maintenance, 12/12/2113:15:00 EDT, Route to Pharmacy Electronically, [facility], 173, cm, 09/17/20 12:44:00 EDT, [...]
--- OUTSIDE RECORDS SUMMARY | 2022-07-05 06:16 | XMS_ITS | Continuity of Care Document ---
:1945 Author Organization [facility] Address [address] [place] [address]- Care Team Providers Name Role Phone Froy Fernando MD Primary Care Physician Encounter [facility] [place] Date(s): 04/22/20 - 07/25/20 [facility] [address] [place] [phone] Attending Physician: Kathy Brink NP Admitting Physician: Keena JOHN, Kathy Dubois Referring Physician: Froy Fernando MD Allergies, Adverse [...] 09/17/19 16:35:00 EDT, Route to Pharmacy Electronically, [facility], 173, cm, 09/02/19 14:38:00 EDT, Height, 91.3, kg, 09/02/19 14:38:00 EDT, Dry Weight Start Date: 09/17/19 Stop Date: 09/11/20 Status: Orderedmetoprolol 100 mg oral tablet, extended release 150 mg, 1.5, tablet, By Mouth, Daily, # 135 tablet, Refills 3, Tot. Refills 3, Maintenance, 10/02/2012:03:00 EDT, Route to Pharmacy Electronically, [facility], 173, cm, 09/02/19 14:38:00 EDT, Height, 91.3, kg, 09/02/19 14:38:00 EDT, Dry... Start Date: 10/03/19 Stop Date: 09/27/20 Status: OrderedPrevident 1 applicator, Topically, Daily at bedtime, 0 Refills, Maintenance, 05/29/14 15:27:22 Start Date: 05/29/14 Status: OrderedZetia 10 mg oral tablet 1 tablet = 10 mg, By Mouth, Daily, # 90 tablet, 3 Refills, Maintenance, 02/06/20 12:42:00 EDT, Tablet, [facility], 173, cm, 09/02/19 14:38:00 EDT, [...]
--- OUTSIDE RECORDS SUMMARY | 2022-07-05 06:16 | XMS_ITS | Continuity of Care Document ---
:1945 Author Organization [facility] Address [address] [place] [address]- Care Team Providers Name Role Phone Froy Fernando MD Primary Care Physician Encounter [facility] [place] Date(s): 10/20/20 - 11/19/20 [facility] [address] [place] [id number] Allergies, Adverse Reactions, Alerts Substance Reaction [...] 10/23/20 15:49:00 EDT, Route to Pharmacy Electronically, [facility], 173, cm, 09/17/20 12:44:00 EDT, Height, 91.3, kg, 09/02/19 14:38:00 EDT, Dry Weight Start Date: 10/23/20 Stop Date: 10/18/21 Status: Orderedmetoprolol 100 mg oral tablet, extended release 150 mg, 1.5, tablet, By Mouth, Daily, # 135 tablet, Refills 3, Tot. Refills 3, Maintenance, 10/02/2012:03:00 EDT, Route to Pharmacy Electronically, [facility], 173, cm, 09/02/19 14:38:00 EDT, [...]
--- OUTSIDE RECORDS SUMMARY | 2022-07-05 06:16 | XMS_ITS | Continuity of Care Document ---
:1945 Author Organization [facility] Address [address] [place] [address]- Care Team Providers Name Role Phone Froy Fernando MD Primary Care Physician Encounter [facility] Date(s): 09/02/19 - 09/02/[address] [address]- [facility] Discharge Disposition: A-D/C Home Attending Physician: Tonny Estrada MD Admitting Physician: Tonny Estrada MD Referring Physician: Not on Staff, Referring MD Allergies, Adverse Reactions, Alerts Substance Reaction Severity Status Niaspan ER Active Medications aspirin buffered 325 mg oral tablet 1 tablet = 325 mg, By Mouth, Every 4 hours, 0 Refills, Maintenance Start Date: 10/16/12 Status: Orderedatorvastatin 80 mg oral tablet 1 tablet = 80 mg, By Mouth, Daily at bedtime, # 90 tablet, 3 Refills, Maintenance, Tablet, Route to Pharmacy Electronically, [id number], [facility] Start Date: [...] 09/07/18 14:01:48 EDT, Route to Pharmacy Electronically, [id number], [facility] Start Date: 09/07/18 Stop Date: 09/02/19 Status: Orderedmetoprolol 100 mg oral tablet, extended release 150 mg, 1.5, tablet, By Mouth, Daily, # 135 tablet, Refills 3, Tot. Refills 3, Maintenance, 10/06/1913:41:54 EDT, Route to Pharmacy Electronically, [id number], [facility] Start Date: 10/06/18 Stop Date: 10/01/19 Status: OrderedPrevident 1 applicator, Topically, Daily at bedtime, 0 Refills, Maintenance, 05/29/14 15:27:22 Start Date: 05/29/14 Status: OrderedZetia 10 mg oral tablet 1 tablet = 10 mg, By Mouth, Daily, # 90 tablet, 3 Refills, Maintenance, 06/28/19 13:54:00 EST, Tablet Start Date: 06/28/19 Stop Date: 06/22/20 Status: Ordered Problem List Condition Effective Dates Status Health Status Informant Coronary artery disease(Confirmed) Active Hyperlipidemia(Confirmed) Active Old myocardial infarction(Confirmed) Active Results Radiology Reports Exam Date Time Procedure Performing Provider Status 09/02/19 2:51 PM Hand Min 3 Views Left Viri Godfrey; Starla vergara (Verified) Notes:(Hand Min 3 Views Left) Reason For Exam: TraumaRESULT: Hand Min 3 Views Left Hand Min 3 Views Left, 3 views INDICATION: Thumb pain status post injury. COMPARISON: None on record. FINDINGS: There is advanced osteoarthritis in the first carpometacarpal joint space. Mild osteoarthritis elsewhere. There is mild negative ulnar variance in the wrist. IMPRESSION: No fracture or dislocation. WSN: [id number] Ordering Physician: Tonny Estrada Dictated By: Arnoldo Patel MD Dictated Date/Time: 09/02/19 2:56 pm Reviewed By: Arnoldo Patel MD Signed By: Arnoldo Patel MD Signed Date/Time: 09/02/19 2:56 pm Transcribed By: BRENDA Transcribed Date/Time: 09/02/19 2:54 pm Vital Signs Most recent to oldest [Reference Range]: 1 Height 173 cm (09/02/19 2:38 PM) Weight 91.3 kg (09/02/19 2:38 PM) Oxygen Saturation [94-100 %] 98 % (09/02/19 2:38 PM) Pulse Rate [55-90 bpm] 75 bpm (09/02/19 2:38 PM) Blood Pressure [90-138/55-84 mm Hg] 123/79 mm Hg (09/02/19 2:38 PM) Respiratory Rate [16-30 br/min] 18 br/min (09/02/19 2:38 PM) Temperature [96.8-100.4 DegF] 98.1 DegF (09/02/19 2:38 PM) Mode of Delivery (Oxygen) Room air (09/02/19 2:38 PM) Blood pressure sites Arm, left (09/02/19 2:38 PM) Temperature Route Temporal (09/02/19 2:38 PM) Dry Weight 91.3 kg (09/02/19 2:38 PM) Weight Obtained Via Standing scale (09/02/19 2:38 PM) Dry Weight Obtained Via Standing scale (09/02/19 2:38 PM) Social History Social History Type Response Smoking Status Never smoker; Tobacco user i n household: No entered on: 04/05/18 Sex
--- OUTSIDE RECORDS SUMMARY | 2022-07-05 06:16 | XMS_ITS | Continuity of Care Document ---
:1945 Author Organization [facility] Address [address] [place] [address]- Care Team Providers Name Role Phone Froy Fernando MD Primary Care Physician Encounter [facility] [place] Date(s): 12/16/21 - 01/15/22 [facility] [address] [place] [address]- [place] Allergies, Adverse Reactions, Alerts Substance Reaction [...] Date: 01/08/23 Status: Ordered Problem List Condition Effective Dates Status Health Status Informant Coronary artery disease(Confirmed) Active Hyperlipidemia(Confirmed) Active Obese class I(Confirmed) Active Old myocardial infarction(Confirmed) Active Social History Social History Type Response Smoking Status Never smoker; Tobacco user i n household: No entered on: 04/05/18 Sex
--- OUTSIDE RECORDS SUMMARY | 2022-07-05 06:16 | XMS_ITS | Continuity of Care Document ---
:1945 Author Organization [facility] Address [address] [place] [address]- Care Team Providers Name Role Phone Froy Fernando MD Primary Care Physician Encounter [facility] [place] Date(s): 10/14/21 - 11/13/21 [facility] [address] [place] [address]- Attending Physician: Arianna Sierra Admitting Physician: Arianna Sierra Referring Physician: Arianna Sierra Allergies, Adverse Reactions, Alerts Substance Reaction Severity [...] 10/15/21 7:39:00 EDT, Route to Pharmacy Electronically, [facility], Partial fill upon patient request if the prescription is for a schedule II opioi... Start Date: 10/15/21 Stop Date: 10/10/22 Status: Orderedmetoprolol 100 mg oral tablet, extended release 150 mg, 1.5, tablet, By Mouth, Daily, # 135 tablet, Refills 3, Tot. Refills 3, Maintenance, 12/12/2113:15:00 EDT, Route to Pharmacy Electronically, [facility], 173, cm, 09/17/20 12:44:00 EDT, [...]
--- OUTSIDE RECORDS SUMMARY | 2022-07-05 06:16 | XMS_ITS | Continuity of Care Document ---
:1945 Author Organization [facility] Address [address] [place] [address]- Care Team Providers Name Role Phone Froy Fernando MD Primary Care Physician Encounter [facility] [place] Date(s): 01/13/22 - 02/12/22 [facility] [address] [place] [address]- [place] Allergies, Adverse Reactions, Alerts Substance Reaction [...]
--- OUTSIDE RECORDS SUMMARY | 2022-07-05 06:16 | XMS_ITS | Continuity of Care Document ---
:1945 Author Organization [facility] Address [address] [place] [id number]- Care Team Providers Name Role Phone Froy Fernando MD Primary Care Physician Encounter [facility] Date(s): 06/06/19 - 06/16/19 [facility] [address] [place] [id number]- [facility] Attending Physician: Arianna Sierra Admitting Physician: Arianna Sierra Referring Physician: AdmtrArianna Allergies, Adverse Reactions, Alerts [...] Refills, Maintenance, Tablet, Route to Pharmacy Electronically, [id number], [facility] Start Date: [...] 09/07/18 14:01:48 EDT, Route to Pharmacy Electronically, [id number], [facility] Start Date: 09/07/18 Stop Date: 09/02/19 Status: Orderedmetoprolol 100 mg oral tablet, extended release 150 mg, 1.5, tablet, By Mouth, Daily, # 135 tablet, Refills 3, Tot. Refills 3, Maintenance, 10/06/1913:41:54 EDT, Route to Pharmacy Electronically, [id number], [facility] Start Date: 10/06/18 Stop Date: 10/01/19 Status: OrderedPrevident 1 applicator, Topically, Daily at bedtime, 0 Refills, Maintenance, 05/29/14 15:27:22 Start Date: 05/29/14 Status: OrderedZetia 10 mg oral tablet 1 tablet = 10 mg, By Mouth, Daily, # 90 tablet, 3 Refills, Maintenance, 06/15/19 16:45:00 EST, Tablet, [facility], 175, cm, 06/06/19 9:53:00 EST, Height Start Date: 06/15/19 Stop Date: 06/09/20 Status: Ordered Problem List Condition Effective Dates Status Health Status Informant Coronary artery disease(Confirmed) Active Hyperlipidemia(Confirmed) Active Old myocardial infarction(Confirmed) Active Social History Social History Type Response Smoking Status Never smoker; Tobacco user i n household: No entered on: 04/05/18 Sex
[2022-07-05 07:15] VITALS: BP 123/77; PULSE 77; RESP 20; TEMP 36.6; O2SAT 96
--- NOTE | 2022-07-05 07:44 | ED.BACK ---
HPI - Back Pain/Injury General Chief Complaint: Back Pain/Injury Stated Complaint: spinal pain Time Seen by Provider: 07/05/22 07:07 Source: patient Mode of arrival: ambulatory Limitations: no limitations History of Present Illness HPI Narrative: 77-year-old male he states he has a history of some back issues relating to sciatica on the right side some tender 20 years ago. He states he has been doing well he states he did have an MRI during that time and states had some disc issues. Patient states that yesterday woke up started having some pain. Patient states he has not taken anything for the pain but was unable to sleep last night so came in for evaluation. Patient denies any falls or injuries he denies numbness or he denies any IV drug use. He denies recent fevers or recent surgeries pain is constant his wound for the past day pain does radiate down the right leg. patient states he was able to call and make an appointment with the electronic publications specialist on Tuesday. MD elicited complaint: back pain Related Data Previous Rx's Medication Instructions Recorded ibuprofen 600 mg tablet 600 mg PO Q6H PRN pain #30 tabs 04/09/21 cyclobenzaprine 5 mg tablet 5 mg PO BEDTIME PRN muscle spasm 07/05/22 #20 tabs prednisone 20 mg tablet 60 mg PO DAILY Asthma 5 days #15 07/05/22 tabs Allergies Allergy/AdvReac Type Severity Reaction Status Date / Time niacin Allergy Intermediate RASH Verified 07/05/22 06:02 [From NIASPAN EXTENDED-RELEASE] Review of Systems Review of Systems: Review of systems: General: Patient denies any fever chills recent illness or falls Musculoskeletal: right lower back pain radiating down the right leg or body aches or other injuries HEENT: denies headache, runny nose, ear pain Respiratory: denies shortness of breath, cough Cardiovascular: no chest pain or palpitations : denies dysuria, frequency Abdomen: no nausea vomiting denies abdominal pain Extremities: no swelling, no pain Skin: no diaphoresis Yes all other systems are reviewed and are negative [facility] Past Medical History Medical History (Updated 07/05/22 @ 07:49 by Luis Regalado DO) No known health problems Surgical History (Updated 10/05/21 @ 01:23 by Ariella Merino) No history of previous surgery Social History Social History Alcohol intake: current Alcohol intake frequency: 0-2 drinks per day Alcohol type: wine Patient Tobacco Use Status: Never used Tobacco Smoked in Last 30 Days: No Use of substances other than those prescribed or required for medical reasons: No Advance Directives: No Advance Directives Information Provided: Yes Physical Exam Vital Signs: Vital Signs: Last Vital Signs Temp 97.8 F 07/05/22 07:15 Pulse 77 07/05/22 07:15 Resp 20 07/05/22 07:15 BP 123/77 07/05/22 07:15 Pulse Ox 96 07/05/22 07:15 O2 Del Method 07/05/22 07:15 BMI result Body Mass Index 33.4 General: Well-appearing well-nourished in no signs of distress HEENT: Normocephalic atraumatic Neck: No signs of JVD, no masses no tenderness or lymphadenopathy Cardiovascular: Regular rate and rhythm Respiratory: Clear to auscultation bilaterally Abdomen: Soft nontender no masses he is able to close his rectal muscles Extremities: Normal pedal pulses no signs of edema Skin: Dry warm no rashes Back: No tenderness full ROM, good reflexes bilaterally normal strength no reproducible pain Medical Decision Making Medical Decision Making MDM Narrative: patient with known back issues no back pain red flags I think he is safe to go home follow-up electronic publications specialist on Tuesday I will start him prednisone gives her Tylenol here and give some cyclobenzaprine and he has had a sleep again tonight. Differential Diagnosis Differential Diagnoses: The differential diagnosis associated with the presentation includes Sciatica, back strain Discharge Plan Discharge Clinical Impression: Sciatica Patient Disposition: Home, Self-Care Instructions: Sciatica (ED), Acute Low Back Pain (ED), Lower Back Exercises (ED) Additional Instructions: Please call to follow up with your doctor. Don't mix cyclobenzaprine with alcohol or drive while on it. If you have any other concerns please return to the ED. Prescriptions: New prednisone 20 mg tablet 60 mg PO DAILY 5 Days Qty: 15 0RF cyclobenzaprine 5 mg tablet 5 mg PO BEDTIME PRN (Reason: muscle spasm) Qty: 20 0RF No Action ibuprofen 600 mg tablet 600 mg PO Q6H PRN (Reason: pain) Qty: 30 0RF
== END 2022-07-05 08:04 | disposition home or self-care (01) ==
PROVIDERS: Emergency Provider Student in an Organized Health Care Education/Training Program; PCP Internal Medicine
DX: M54.41 Lumbago with sciatica, right side (principal)
CPT/HCPCS: 99283; 99284

== ENCOUNTER 2022-07-14 09:11 | Outpatient (REF) | payer MEDICARE, SELFPAY ==
--- NOTE | ~2022-07-14 | XR_ITS ---
EXAMINATION: XR LUMBOSACRAL SPINE CLINICAL INFORMATION: Right-sided sciatic pain. Evaluate degenerative disease. COMPARISON: MRI of lumbar spine from 07/30/2017 TECHNIQUE: Three views of the lumbosacral spine. FINDINGS: No acute abnormalities in the lumbar spine compared to 07/30/2017. The vertebral body heights are maintained. There are 6 nonrib-bearing vertebra of the lumbar spine and the uppermost vertebral body is considered to represent T12 for this report. Mild levoscoliosis of 10 degrees is measured from the superior endplate of T10 to the inferior endplate of L4. There is chronic multilevel degenerative loss of disc space with varying degrees of endplate sclerosis and vertebral osteophyte formation. Facet osteoarthritis of the lumbar spine is worst at L4-5. There is chronic mild grade 1 anterolisthesis at L2-L3 and L4-L5. Sacrum and sacroiliac joints are unremarkable. Surgical clips are seen in the right pelvis. Normal bowel gas pattern. Atherosclerotic calcification of the abdominal aorta which measures up to approximately 3.4 cm AP diameter. XR/XR lumbar spine 2-3V IMPRESSION: * No acute abnormalities in the degenerated lumbar spine compared to 07/30/2017. * There is multilevel moderate and severe degenerative disc disease and facet arthropathy. * Mild levoscoliosis of the lumbar spine and chronic grade 1 anterolisthesis at L2-L3 and L4-L5. * Atherosclerotic calcification of the abdominal aorta measures up to 3.4 cm AP diameter. The atherosclerotic infrarenal abdominal aorta measured less than 3 cm on the abdomen CT from 05/04/2014 and was approximately 3 cm transverse diameter on lumbar MRI from 07/30/2017. Consider follow-up abdominal CT imaging in 3 years to reevaluate aorta size.
[2022-07-14 11:42] LABS: Appearance Urine Clear; Color Urine Dark Yellow; Glucose Urine UA Negative (Negative); Leukocyte Esterase Urine Negative (Negative); Nitrite Urine Negative (Negative); PH 5.5 (5.0-9.0); Specific Gravity - Urine >= 1.030 (1.005-1.025); UMIC TRIGGER UA YES; Urine Blood Negative (Negative); Urine Ketones Negative (Negative); Urine Protein 30 (1+) mg/dL (Neg-Trace)
[2022-07-14 11:45] LABS: MANUAL DIFF FLAG NO
[2022-07-14 11:48] LABS: Basophils Percent Auto 0.3 % (0-2); Eosinophils Absolute Auto 0.4 X10*3/uL (0.0-0.4); Eosinophils Percent Auto 4.2 % (0-4); Hematocrit 41.4 % (42.0-52.0); Hemoglobin 14.3 g/dl (14.0-18.0); Imm Gran Abs Auto 0.04 X10*3/uL (0.00-0.03); Imm Gran Pct Auto 0.4 % (0.0-0.4); Lymphocytes Absolute Auto 1.8 X10*3/uL (1.2-4.9); Lymphocytes Percent Auto 17.9 % (20-40); Mean Corpuscular HGB Conc 34.5 g/dl (31.0-36.0); Mean Corpuscular Volume 98.3 fL (80.0-98.0); Monocytes Absolute Auto 0.8 X10*3/uL (0.1-1.2); Monocytes Percent Auto 8.1 % (2-11); Neutrophils Absolute Auto 6.9 x10*3/uL (2.0-8.3); Neutrophils Percent Auto 69.1 % (45-73); Platelet Count 188 X10*3/uL (160-400); Red Blood Count 4.21 X10*6/uL (4.60-5.80); Red Cell Distribution Width 12.2 % (11.0-16.0); White Blood Count 9.9 X10*3/uL (4.8-10.8)
[2022-07-14 11:49] LABS: Bacteria Urine None Seen (None Seen); Hyaline Casts Urine 0-2 /LPF (0-2); RBC Urine 0-2 /HPF (0-2); Squamous Epithelial Cell Urine 0-2 /HPF (0-2); WBC Urine 0-5 /HPF (0-5)
[2022-07-14 12:23] LABS: Alanine Aminotransferase 31 U/L (0-40); Albumin Level 3.8 g/dL (3.5-5.0); Alkaline Phosphatase 90 U/L (39-117); Anion Gap 12 (12-20); Aspartate Amino Transferase 23 U/L (5-37); Bilirubin Total 2.1 mg/dL (0.0-1.0); Blood Urea Nitrogen 45 mg/dL (9-16); Carbon Dioxide 26 mmol/L (22-29); Chloride 105 mmol/L (96-108); Cholesterol 96 mg/dL; Estimated Glomerular Filt Rate 58; Glucose Fasting 115 mg/dL (60-99); HDL Cholesterol 46 mg/dL; LDL Cholesterol Calculated 31 mg/dl; Potassium 4.1 mmol/L (3.3-5.1); Sodium 139 mmol/L (135-145); Total Protein 6.3 g/dL (6.5-8.0); Triglycerides 97 mg/dL
[2022-07-14 12:26] LABS: Prostate Specific Antigen 0.93 ng/mL (<0.05-4.0)
== END 2022-07-14 09:12 | disposition home or self-care (01) ==
LOC: HO.HMGCLDS 09:11
PROVIDERS: PCP Internal Medicine; Visit Provider Internal Medicine
DX: Z00.00 Encounter for general adult medical examination without abnormal findings (principal); Z12.5 Encounter for screening for malignant neoplasm of prostate; M54.31 Sciatica, right side
CPT/HCPCS: 36415; 72100; 80053; 80061; 81001; 84153; 85025

== ENCOUNTER 2022-08-12 09:35 | Outpatient (REF) | payer MEDICARE, SELFPAY ==
--- NOTE | ~2022-08-12 | MR_ITS ---
EXAMINATION: MR LUMBAR SPINE WITHOUT CONTRAST CLINICAL INFORMATION: Back pain radiating to legs. Abnormal x-ray. COMPARISON: Plain films of the lumbar spine 07/14/2022. MRI scan of the lumbar spine 07/30/2017. TECHNIQUE: MRI of the lumbar spine was obtained using routine sequences without contrast. FINDINGS: VERTEBRAL BODIES AND PARASPINAL STRUCTURES: There are hypoplastic ribs off the body of T12. There is a pseudoarticulation between L5 and S1 on the left. There is a rotatory levoscoliosis. There are mild grade 1 anterolistheses of L2 on L3 and L4 on L5. There is multilevel narrowing of intervertebral disc height with loss of signal. There are degenerative endplate contour changes with fatty endplate signal at L3-L4. There are Schmorl's nodes at adjacent endplates at multiple levels. There is loss of vertebral body height of L5 toward the right, which is new compared to prior imaging. There is edematous signal along the adjacent endplates at L4-L5, increased compared to prior imaging. Overall, marrow signal is homogenous. The infrarenal abdominal aorta is again noted to have a caliber of approximately 3.2 cm. There is a right-sided renal cyst. There is atrophy of the right psoas muscle. CONUS MEDULLARIS AND CAUDA EQUINA: Normal, terminating at the level of L1. There is crowding of the cauda equina nerve roots from spondylosis and facet arthropathy at multiple levels. The lower thoracic spinal cord has normal signal. SPINAL LEVELS: T12-L1: The facet joints appear normal. There is a diffuse disc bulge. There is no foraminal nerve root impingement or central stenosis. L1-L2: There is mild bilateral facet arthropathy. There is a posterior disc protrusion which flattens the ventral thecal sac and narrows the subarticular recesses bilaterally. There are inferior foraminal disc protrusions bilaterally without exiting nerve root impingement. There is mild to moderate central stenosis. L2-L3: There is moderate to severe bilateral facet arthropathy with ligamenta flava hypertrophy and facet joint effusions. There is a broad-based posterior disc protrusion now with an extruded component extending behind the body of L2 centrally and to the right of midline, and into the right lateral recess of L2. There is marked compression of the thecal sac with narrowing of the bilateral subarticular recesses and there is severe central stenosis. There are bilateral foraminal disc protrusions extending far laterally with impingement on the extraforaminal L2 nerve roots bilaterally. L3-L4: There is severe bilateral facet arthropathy with ligamenta flava hypertrophy and facet joint effusions. There is a 7 mm synovial cyst extending off the posterior right facet joint. There is a posterior disc protrusion extending into the neural foramina bilaterally with impingement on the exiting L3 nerve roots. There is narrowing of the bilateral subarticular recesses and there is moderate central stenosis. L4-L5: There is markedly severe bilateral facet arthropathy with ligamenta flava hypertrophy. There is unroofing of the disc as a result of the anterolisthesis and there are bilateral foraminal disc protrusions, more prominent on the right. There is compression of the exiting right L4 nerve roots and there is impingement on the exiting left L4 nerve root. There is severe central stenosis. L5-S1: There is severe bilateral facet arthropathy. A small posterior disc protrusion without significant mass effect on the thecal sac. There are left greater than right foraminal disc osteophyte complexes with impingement on the exiting L5 nerve roots. There is no central stenosis. MR/MR lumbar spine wo con IMPRESSION: 1. At L2-L3 there is moderate to severe facet arthropathy. There is a posterior disc protrusion/extrusion with marked compression of the thecal sac and narrowing of the bilateral subarticular recesses. Extrusion in the right lateral recess impingement on the traversing right L3 nerve root. There are bilateral foraminal disc protrusions extending far laterally with impingement on the extraforaminal L2 nerve roots bilaterally. 2. At L4-L5 there is markedly severe facet arthropathy. There is an anterolisthesis of L4 on L5 with bilateral foraminal disc protrusions, more prominent on the right. There is compression of the exiting right L4 nerve root and there is impingement on the exiting left L4 nerve root. There is severe central stenosis. 3. At L3-L4 there is severe facet arthropathy. There is a synovial cyst off the posterior right facet joint. There is a posterior disc protrusion extending into the neural foramina with impingement on the exiting L3 nerve roots. There is moderate central stenosis. 4. At L5-S1 there is severe facet arthropathy. There are left greater than right foraminal disc osteophyte complexes impinging on the exiting L5 nerve roots. There is no central stenosis. 5. There is some new loss of vertebral body height toward the right along the superior endplate of L5. There is some edema in the endplates, and the findings may be consistent with acute to subacute trauma. 6. The study redemonstrates increased caliber of the infrarenal abdominal aorta, and as previously stated, recommend follow-up as previously described.
== END 2022-08-12 09:36 | disposition home or self-care (01) ==
LOC: HO.MRI 09:35
PROVIDERS: Visit Provider Internal Medicine
DX: M54.50 Low back pain, unspecified (principal); M54.10 Radiculopathy, site unspecified
CPT/HCPCS: 72148

== ENCOUNTER 2022-09-15 10:31 | Outpatient (REF) | payer MEDICARE, SELFPAY ==
--- NOTE | ~2022-09-15 | MM_ITS ---
EXAMINATION: BONE DENSITOMETRY CLINICAL INDICATION: Initial encounter code. Fracture of lumbar vertebra. COMPARISON: None (current study represents initial baseline exam). MR lumbar spine 08/12/2022 TECHNIQUE: Using a [employer] DXA System (software version: 13.1) manufactured by [employer], dual-energy x-ray absorptiometry was performed of the lumbar spine and left hip. The images are of good technical quality. Summary results are attached. FINDINGS: AP SPINE L1-L3 (excluding L4): The data of L1-L4 has been changed to exclude the L4 vertebral body, because degenerative changes at this level may cause overestimation of lumbar spine density. BMD 1.608 g/cm2, Z-score 3.6, T-score 3.3, normal. LEFT FEMUR, NECK: BMD 0.976 g/cm2, Z-score 0.4, T-score -0.7, normal. LEFT FEMUR, TOTAL: BMD 1.016 g/cm2, Z-score 0.1, T-score -0.6, normal. IDENTIFIED RISK FACTORS: History of adult fracture. HISTORY OF FRACTURE: Loss of height superior endplate L5, MR lumbar spine 08/12/2022 MEDICATIONS: Vitamin D. MM/XR DEXA axial skeleton IMPRESSION: 1. DIAGNOSIS: Normal bone density based on the lowest T-score value of -0.7 in the femoral neck applying World Health Organization criteria. 2. 10-YEAR FRACTURE RISK PREDICTION, FRAX: According to the guidelines, FRAX calculation should only be performed on patients in the osteopenia bone density category.?Therefore, FRAX was not performed on this patient.? 3. Treatment Recommendations: NOF guidelines recommend consideration for treatment in postmenopausal women and men age 50 and older presenting with the following: -A hip or vertebral (clinical or morphometric) fracture. -T-score less than or equal to -2.5 at the femoral neck or spine after appropriate evaluation to exclude secondary causes. -Low bone mass at the hip or spine and a 10-year fracture probability by FRAX of greater than or equal to 3% for hip fracture or greater than or equal to 20% for major osteoporotic fracture based on the [place] adapted WHO algorithm. 4. Other Recommendations: All treatment decisions require clinical judgment and consideration of individual patient factors, including patient preferences, comorbidities, previous drug use, risk factors not captured in the FRAX model (e.g. frailty, falls, vitamin D deficiency, increased bone turnover, interval significant decline in bone density) and possible under or overestimation of fracture risk by FRAX. FUTURE SCAN RECOMMENDATION: People with diagnosed cases of osteoporosis or at high risk for fracture should have regular bone mineral density tests. For patients eligible for Medicare, routine testing is allowed once every 2 years. The testing frequency can be increased to one year for patients who have rapidly progressing disease, those who are receiving or discontinuing medical therapy to restore bone mass, or have additional risk factors.
== END 2022-09-15 10:32 | disposition home or self-care (01) ==
LOC: HO.MAMMO 10:31
PROVIDERS: PCP Internal Medicine; Visit Provider Internal Medicine
DX: Z13.820 Encounter for screening for osteoporosis (principal); S32.050A Wedge compression fracture of fifth lumbar vertebra, initial encounter for closed fracture
CPT/HCPCS: 77080

== ENCOUNTER 2023-06-25 09:09 | Outpatient (AMB) | payer MEDICARE, SELFPAY ==
--- NOTE | 2023-06-25 10:31 | MHC.OFFWIV ---
Intake Vital Signs 06/25/23 10:45 Height 5 ft 8 in Weight 205 lb BMI 31.2 BP 130/70 Blood Pressure Location Lt brachial Position Sitting Pulse 81 Pulse Source Pulse Oximeter Temp 98.5 F Temp Source Oral Pulse Oximetry (%) 98 Oxygen Delivery Method Room Air Intake Visit Reasons: EST/exposed to covid([phone]) Intake Note: Pt is here today was eposed to COVID on 06/19 but not having any sx's Patient Tobacco Use Status: Never used Tobacco Allergies niacin [From NIASPAN EXTENDED-RELEASE] Allergy (Intermediate, Verified 06/25/23 10:31) RASH Do you need a note to return to daycare/school/sports/work: No HPI HPI Comments History of Present Illness Details This is a 78-year-old male with past medical history of hypertension hyperlipidemia presenting for evaluation after being exposed to two individuals with COVID-19 on June 19, 2023. Patient states he does not have any symptoms and denies specifically any fevers, chills, ear pain, sore throat, cough, chest pain, shortness of breath, nausea, vomiting or abdominal pain. Patient states he is fully vaccinated against COVID-19. [facility] Medical History No known health problems Surgical History (Updated 10/05/21 @ 01:23 by Ariella Merino) No history of previous surgery Social History Alcohol intake: current Alcohol intake frequency: 0-2 drinks per day Alcohol type: wine Patient Tobacco Use Status: Never used Tobacco Review of Systems Const All systems reviewed & are unremarkable except as noted in HPI and below Card Reports no additional complaints Resp Reports no additional complaints Neuro Reports no additional complaints Physical Exam Vital Signs: Last Vital Signs Temp 98.5 F 06/25/23 10:45 Pulse 81 06/25/23 10:45 BP 130/70 06/25/23 10:45 Pulse Ox 98 06/25/23 10:45 Oxygen Delivery Method Room Air 06/25/23 10:45 BMI result Body Mass Index 31.2 Const General: cooperative, healthy appearing, comfortable and no acute distress Nutritional Appearance: average body habitus Orientation/consciousness: patient oriented x3 Limitations: no limitations HEENT Head: Yes normal to inspection Ears: hearing grossly normal bilaterally, external ears normal, TM's normal bilaterally and EAC's normal General nose exam: Normal external nose present Face and sinus: Yes normal facial exam and No sinus tenderness Mouth: Normal oral and palatal mucosa present Teeth and gingiva: dentition normal and gingiva normal Throat: Yes posterior oropharynx normal and Yes postnasal drainage Eyes Eyelids: Yes eyelids normal Conjunctivae: conjunctivae normal Sclerae: sclerae normal Corneas: corneas normal Pupils: Equal, round and reactive pupils present EOM: EOMs intact bilaterally Neck Lymphatic: no lymphadenopathy noted Resp Effort & Inspection: normal respiratory effort, normal respiratory pattern, no audible wheezes and no cough Auscultation: clear to auscultation bilaterally Cardio Rate: regular rate Rhythm: regular rhythm Neuro General: patient oriented x3 Cranial nerves: Yes Equal, round and reactive pupils present Assessment & Plan Assessment & Plan (1) Close exposure to COVID-19 virus: Code(s): Z20.822 - Contact with and (suspected) exposure to COVID-19 Plan: SARS panel is ordered and pending. Patient will practice safe isolation precautions until his results are available. Patient is overall asymptomatic. Orders: Orders SARS-CoV2/FLU/RSV Today Z20.822 - Contact with and (suspected) exposure to COVID-19 Coding Level of Care Code Est Pt Level 3 (17779) Diagnoses Close exposure to COVID-19 virus Z20.822 Time Spent (min) 20
[2023-06-25 10:45] VITALS: BP 130/70; PULSE 81; TEMP 36.9; O2SAT 98; BMI 31.2
== END 2023-06-25 11:20 | disposition home or self-care (01) ==
PROVIDERS: PCP Internal Medicine; Visit Provider Physician Assistant
DX: Z20.822 Contact with and (suspected) exposure to COVID-19 (principal)
CPT/HCPCS: 99213

== ENCOUNTER 2023-06-25 11:01 | Outpatient (REF) | payer MEDICARE, SELFPAY ==
[2023-06-25 14:20] LABS: Influenza A PCR NEGATIVE (Negative); Influenza B PCR NEGATIVE (Negative); Resp Syncy Virus RNA Qual PCR NEGATIVE (Negative); SARS COV2 PCR INHOUSE POSITIVE (Negative)
== END 2023-06-25 11:02 | disposition home or self-care (01) ==
LOC: HO.LAB 11:01
PROVIDERS: Visit Provider Physician Assistant
DX: Z20.822 Contact with and (suspected) exposure to COVID-19 (principal)
CPT/HCPCS: 0241U

== ENCOUNTER 2023-11-01 02:12 | Emergency (ER) | payer MEDICARE, SELFPAY ==
--- NOTE | ~2023-11-01 | XR_ITS ---
EXAMINATION: XR CHEST CLINICAL INFORMATION: Chest tightness COMPARISON: 08/13/2013 TECHNIQUE: Frontal view of the chest was obtained. FINDINGS: There is mild elevation of the right hemidiaphragm. No focal consolidation bilaterally. No evidence of pneumothorax, pleural effusion, or pulmonary edema. Cardiac silhouette appears near the upper limits of normal in size. Degenerative changes are noted in the spine. XR/XR chest 1V IMPRESSION: No acute cardiopulmonary findings.
--- NOTE | 2023-11-01 02:33 | ECG_ITS ---
Test Reason : CHEST PAIN Blood Pressure : / mmHG Vent. Rate : 091 BPM Atrial Rate : 091 BPM P-R Int : 170 ms QRS Dur : 086 ms QT Int : 328 ms P-R-T Axes : 037 022 017 degrees QTc Int : 403 ms Normal sinus rhythm Normal ECG When compared with ECG of 04-MAY-2014 00:32, No significant change was found Referred By: Generic ED Physician Electronically Signed By:Andrew Strong
[2023-11-01 02:35] VITALS: BP 133/82; PULSE 92; RESP 16; TEMP 36.2; O2SAT 94; BMI 34.3
[2023-11-01 02:48] LABS: MANUAL DIFF FLAG NO
[2023-11-01 02:49] LABS: Basophils Percent Auto 0.4 % (0-2); Eosinophils Absolute Auto 0.3 X10*3/uL (0.0-0.4); Eosinophils Percent Auto 2.9 % (0-4); Hematocrit 37.3 % (42.0-52.0); Hemoglobin 13.3 g/dl (14.0-18.0); Imm Gran Abs Auto 0.02 X10*3/uL (0.00-0.03); Imm Gran Pct Auto 0.2 % (0.0-0.4); Lymphocytes Absolute Auto 1.8 X10*3/uL (1.2-4.9); Lymphocytes Percent Auto 18.1 % (20-40); Mean Corpuscular HGB Conc 35.7 g/dl (31.0-36.0); Mean Corpuscular Hemoglobin 32.8 pg (27.0-33.0); Mean Corpuscular Volume 91.9 fL (80.0-98.0); Monocytes Absolute Auto 0.8 X10*3/uL (0.1-1.2); Neutrophils Absolute Auto 6.8 x10*3/uL (2.0-8.3); Neutrophils Percent Auto 70.4 % (45-73); Platelet Count 172 X10*3/uL (160-400); Red Blood Count 4.06 X10*6/uL (4.60-5.80); Red Cell Distribution Width 12.2 % (11.0-16.0); White Blood Count 9.7 X10*3/uL (4.8-10.8)
[2023-11-01 03:02] LABS: Alanine Aminotransferase 14 U/L (0-40); Albumin Level 3.9 g/dL (3.5-5.0); Alkaline Phosphatase 111 U/L (39-117); Anion Gap 14 (12-20); Aspartate Amino Transferase 19 U/L (5-37); Bilirubin Total 0.9 mg/dL (0.0-1.0); Blood Urea Nitrogen 32 mg/dL (9-16); Carbon Dioxide 20 mmol/L (22-29); Chloride 106 mmol/L (96-108); Creatinine Clr Calc Pharmacy 62.2; Estimated Glomerular Filt Rate > 60; Glucose Random 118 mg/dL (60-115); Potassium 4.3 mmol/L (3.3-5.1); Sodium 136 mmol/L (135-145); Total Protein 6.8 g/dL (6.5-8.0)
[2023-11-01 03:09] LABS: Troponin-I High Sensitivity < 2.7 ng/L (<3.5-35.0)
[2023-11-01 03:22] LABS: B Type Natriuretic Peptide 90 pg/mL (<100)
--- NOTE | 2023-11-01 06:45 | ED_ITS ---
HPI - Chest Pain General Chief Complaint: Chest Pain Stated Complaint: trouble breathing Time Seen by Provider: 11/01/23 06:41 Source: patient Mode of arrival: ambulatory Limitations: no limitations History of Present Illness HPI narrative: 78 yo m with pmhx of HTN presents with sob and congestion X 1 week. He reports a productive cough for one week. Reports worse on exertion. Patient states that no cough medicines have made it better. He denies sick contacts. Symptoms seem to be worse w/ exertion. Denies cp, nausea, vomiting, diarrhea, fevers, chills, abdominal pain, dizziness, vision changes. Not on thinners. No hx of smoking. No long travel Related Data Home Medications ?Medication ?Instructions ?Recorded ?Confirmed aspirin 325 mg tablet 325 mg PO DAILY 06/25/23 atorvastatin 80 mg tablet 80 mg PO BEDTIME 06/25/23 ezetimibe 10 mg tablet (Zetia) 10 mg PO DAILY 06/25/23 lisinopril 2.5 mg tablet 2.5 mg PO DAILY 06/25/23 metoprolol succinate 100 mg 150 mg PO DAILY 06/25/23 tablet,extended release 24 hr Previous Rx's ?Medication ?Instructions ?Recorded albuterol sulfate 90 mcg/actuation 2 inh inhalation Q4-6H PRN 11/01/23 breath activated powder inhaler shortness of breath or wheezing #1 ea doxycycline hyclate 100 mg capsule 100 mg PO BID 10 days #20 caps 11/01/23 prednisone 20 mg tablet 20 mg PO DAILY 5 days #5 tabs 11/01/23 Allergies Allergy/AdvReac Type Severity Reaction Status Date / Time niacin Allergy Intermediate RASH Verified 11/01/23 02:37 [From NIASPAN EXTENDED-RELEASE] Review of Systems 2 Review of Systems: Yes all other systems are reviewed and are negative [facility] Past Medical History Attestation statement: The following information was validated with the patient. Source: old records reviewed and nursing notes reviewed Medical History No known health problems Surgical History No history of previous surgery Social History Social History Alcohol intake: current Alcohol intake frequency: 0-2 drinks per day Alcohol type: wine Patient Tobacco Use Status: Never used Tobacco Smoked in Last 30 Days: No Use of substances other than those prescribed or required for medical reasons: No Advance Directives: No Advance Directives Information Provided: No Do you have a plan to hurt others: No Plan Physical Exam 2 Vital Signs: Vital Signs: Last Vital Signs Temp 97.1 F 11/01/23 02:35 Pulse 92 11/01/23 02:35 Resp 16 11/01/23 02:35 BP 133/82 11/01/23 02:35 Pulse Ox 94 11/01/23 02:35 O2 Del Method Room Air 11/01/23 02:35 BMI result Body Mass Index 34.3 vss Appearance: Alert.? Oriented X3.? No acute distress.? Head: Normocephalic, atraumatic, no step-offs or deformities Eyes: Pupils equal, round and reactive to light.? CVS: Normal heart rate and rhythm.? Pulses normal.? Respiratory: No respiratory distress.? Breath sounds normal.? Abdomen: Soft and nontender.? Skin: Skin warm and dry.? Normal skin color.? Normal skin turgor.? Extremities: No lower extremity edema.? No calf ttp. 5/5 strength to bilateral upper and lower extremities Back: No midline tenderness, no C-spine tenderness, full range of motion, no CVA tenderness bilaterally Neuro: Oriented X 3.? No motor deficit.? No sensory deficit. CN 2-12 intact Course Reevaluation(s) Reevaluation #1: CBC no acute findings requiring intervention, normocytic anemia noted. This is patient's baseline. Chemistry no acute findings requiring intervention chronically elevated BUN and creatinine tolerating p.o. fluids encourage p.o. hydration. Troponin negative x2. Initial troponin less than 2.7, repeat 4.5, no chest pain reported, nonischemic EKG unlikely ACS. Patient coughing. This could be slightly elevated secondary to demand I do not suspect acute coronary syndrome. Unlikely dissection or PE. Chest x-ray no acute cardiopulmonary findings. Patient feeling well. Would like to leave. Educated patient on diagnosis and treatment plan, answered all question, patient verbalizes understanding. At this time patient will be discharged home, advised to return with new or worsening symptoms. Educated on worrisome signs and symptoms and when to return. At this time I feel comfortable discharge home. Time: 07:59 Medical Decision Making Medical Decision Making [facility] Narrative: 0645 78 year old male presents w/ chest congestion, sob, X 1 week. Sx worse w/ exertion Hx and pe benign Hx and PE concerning for bronchitis vs pna vs viral illness. Unlikely PE , dissection, acs , ARDS, CHF, PNA Plan-labs, viral illness, chest xray Differential Diagnosis Differential Diagnoses: The differential diagnosis associated with the presentation includes Hx and PE concerning for bronchitis vs pna vs viral illness. Unlikely PE , dissection, acs , ARDS, CHF, PNA Admission/Observation Consideration of admission/observation: Escalation of care including admission/observation considered Lab Data [facility] Lab Attestation statement: I reviewed the patient's lab results. 11/01/23 02:41 11/01/23 02:41 Labs: Lab Results 11/01/23 11/01/23 Range/Units 02:41 06:56 WBC 9.7 (4.8-10.8) X10*3/uL RBC 4.06 L (4.60-5.80) X10*6/uL Hgb 13.3 L (14.0-18.0) g/dl Hct 37.3 L (42.0-52.0) % MCV 91.9 (80.0-98.0) fL MCH 32.8 (27.0-33.0) pg MCHC 35.7 (31.0-36.0) g/dl RDW 12.2 (11.0-16.0) % Plt Count 172 (160-400) X10*3/uL MPV 10.0 (9.4-12.4) fL Immature Gran % (Auto) 0.2 (0.0-0.4) % Neut % (Auto) 70.4 (45-73) % Lymph % (Auto) 18.1 L (20-40) % Mcintosh % (Auto) 8.0 (2-11) % Eos % (Auto) 2.9 (0-4) % Baso % (Auto) 0.4 (0-2) % Lymph # (Auto) 1.8 (1.2-4.9) X10*3/uL Mcintosh # (Auto) 0.8 (0.1-1.2) X10*3/uL Eos # (Auto) 0.3 (0.0-0.4) X10*3/uL Baso # (Auto) 0.0 (0.0-0.2) X10*3/uL Abs Immat Gran (auto) 0.02 (0.00-0.03) X10*3/uL Absolute Neuts (auto) 6.8 (2.0-8.3) x10*3/uL Absolute Nucleated RBC 0.000 (0.0-0.012) X10*3/uL Nucleated RBC % (auto) 0.0 (0.0-0.2) /100WBC Sodium 136 (135-145) mmol/L Potassium 4.3 (3.3-5.1) mmol/L Chloride 106 (96-108) mmol/L Carbon Dioxide 20 L (22-29) mmol/L Anion Gap 14 (12-20) BUN 32 H (9-16) mg/dL Creatinine 1.06 (0.5-1.4) mg/dL Estim Creat Clear Calc 62.2 Estimated GFR > 60 Random Glucose 118 H (60-115) mg/dL Calcium 9.0 (8.4-10.2) mg/dL Total Bilirubin 0.9 (0.0-1.0) mg/dL AST 19 (5-37) U/L ALT 14 (0-40) U/L Alkaline Phosphatase 111 (39-117) U/L Troponin I High Sens < 2.7 4.5 D (<3.5-35.0) ng/L B-Natriuretic Peptide 90 (<100) pg/mL Total Protein 6.8 (6.5-8.0) g/dL Albumin 3.9 (3.5-5.0) g/dL Independent Interpretation I performed an independent interpretation of an: Plain X-Ray Radiology Impression Discussion of test interpretation with radiology: I have reviewed the radiologist's reading. External Record Review External record reviewed: Office record, Outpatient record and Prior outpatient labs Tests considered The following testing was considered but not selected: low supcion for PE- no indication for CTA Chronic Conditions Patient?s care impacted by: Hypertension and Other (HLD ) Critical Care Time Critical Care Time Critical Care Time: No Discharge Plan Discharge Clinical Impression: Bronchitis Patient Disposition: Home, Self-Care Instructions: Acute Bronchitis (ED) Additional Instructions: Take your medications as prescribed. If you were prescribed antibiotics today, it is important that you take your medication to their entirety, do not skip any doses, do not finish them early. Follow-up with your primary care provider this week. Return to the emergency department with new or worsening symptoms. Such as fevers, chills, chest pain, shortness of breath, nausea, vomiting, dizziness, headache, vision changes, lethargy In case of emergency call 911 Prescriptions: New doxycycline hyclate 100 mg capsule 100 mg PO BID 10 Days Qty: 20 0RF albuterol sulfate 90 mcg/actuation aerosol powdr breath activated 2 inh inhalation Q4-6H PRN (Reason: shortness of breath or wheezing) Qty: 1 0RF prednisone 20 mg tablet 20 mg PO DAILY 5 Days Qty: 5 0RF No Action lisinopril 2.5 mg tablet 2.5 mg PO DAILY metoprolol succinate 100 mg tablet extended release 24 hr 150 mg PO DAILY ezetimibe [Zetia] 10 mg tablet 10 mg PO DAILY atorvastatin 80 mg tablet 80 mg PO BEDTIME aspirin 325 mg tablet 325 mg PO DAILY Referrals: ED Physician,Generic [Emergency Provider] - 2 days Stand Alone Forms: Work/School Release Print Language: Tajik
[2023-11-01 07:22] LABS: Troponin-I High Sensitivity 4.5 ng/L (<3.5-35.0)
--- NOTE | 2023-11-01 07:44 | PC.NURSE ---
Pt awaiting lab results, no apparent distress, call hardiwck within reach.
--- NOTE | 2023-11-01 08:20 | PC.NURSE ---
Pt noted to have junky/barky cough pt verbalizing he is getting a lot of junk up provider aware.
[2023-11-01 08:21] VITALS: BP 131/79; PULSE 75; RESP 16; TEMP 36.8; O2SAT 97
[2023-11-01 08:25] VITALS: BP 131/79; PULSE 75; RESP 16; TEMP 36.8
== END 2023-11-01 08:26 | disposition home or self-care (01) ==
PROVIDERS: Emergency Medicine; Emergency Provider Emergency Medicine Emergency Medical Services; PCP Internal Medicine
DX: J40 Bronchitis, not specified as acute or chronic (principal); I10 Essential (primary) hypertension
CPT/HCPCS: 36415; 71045; 80053; 83880; 84484; 85025; 93005; 99283; 99284

== ENCOUNTER → 2023-11-01 02:33 | Outpatient (BNV) | payer MEDICARE, SELFPAY | PROVIDERS: Emergency Provider Emergency Medicine Emergency Medical Services; PCP Internal Medicine; Visit Provider Internal Medicine Cardiovascular Disease | DX: R07.9 Chest pain, unspecified (principal) | CPT/HCPCS: 93010 ==

== ENCOUNTER 2025-04-24 07:05 | Outpatient (REF) | payer MEDICARE, SELFPAY ==
[2025-04-24 11:34] LABS: Resp Syncy Virus RNA Qual PCR NEGATIVE (Negative); SARS COV2 PCR INHOUSE NEGATIVE (Negative)
== END 2025-04-24 07:06 | disposition home or self-care (01) ==
LOC: HO.LAB 07:05
PROVIDERS: Physician Assistant; PCP Internal Medicine
DX: J06.9 Acute upper respiratory infection, unspecified (principal)
CPT/HCPCS: 87637; 99212

== ENCOUNTER 2025-04-24 07:05 | Outpatient (AMB) | payer MEDICARE, SELFPAY ==
--- NOTE | 2025-04-24 07:07 | AM.OFFWIN_ITS ---
Intake Vital Signs 04/24/25 07:08 Height 5 ft 7.5 in Weight 205 lb BMI 31.6 BP 124/76 Blood Pressure Location Lt brachial Position Sitting Pulse 73 Pulse Source Pulse Oximeter Temp 98.2 F Temp Source Oral Pulse Oximetry (%) 100 Oxygen Delivery Method Room Air Intake Visit Reasons: ep coughing , heavy chest phlegm Intake Note: Patient presents with c/o cough, chest congestion, sinus congestion and SOB/wheezing x4 days Patient Tobacco Use Status: Never used Tobacco Allergies niacin (From NIASPAN EXTENDED-RELEASE) Allergy (Intermediate, Verified 04/24/25 07:10) RASH Do you need a note to return to daycare/school/sports/work: No HPI HPI Comments History of Present Illness Details History - The patient is a 79-year-old male pres enting with chest pressure and persistent cough. - The patient reports feeling chest pres sure described as having an elephant on his chest, which started four days ago. - He denies any history of asthma or INSIDE UPHOLSTERER D and has never smoked. - The patient reports a persistent cough for four days, without associated fever. - He denies nausea, vomiting, diarrhea, and sinus pain, but reports mild head congestion. - The patient was exposed to a coworker who was sick last week. - He has not taken any medications for h is symptoms and usually lets colds resolve on their own. Review of Systems - Respiratory: Reports chest pressure an d persistent cough for four days. Denies dyspnea, wheezing, or hemoptysis. - Constitutional: Denies fever. - Gastrointestinal: Denies nausea, vomit ing, or diarrhea. - Neurological: Reports mild head conges tion. Denies sinus pain. All systems reviewed and are unremarkable except as noted in HPI Physical Exam General: Cooperative, healthy appearing, comfortable and no acute distress Orientation/consciousness: Patient oriented x3 Limitations: No limitations Head: Normal to inspection Ears: Hearing grossly normal bilaterally, external ears normal, EAC's with cerumen in left, normal on right, and TM's normal bilaterally Nose: Normal external nose present, Normal nares present and clear nasal d ischarge present Face and sinus: Normal facial exam and sinuses nontender Mouth: Normal oral and palatal mucosa present and moist mucous membranes Throat: tonsils normal, no exudates, uvula midline, posterior oropharynx erythema Eyes: Appearance normal, both eyes and all related structures Neck: Normal visual inspection, full ROM Respiratory: Clear to auscultation bilaterally. Normal respiratory effort, able to speak in complete sentences, actively coughing, no respiratory distress, not tachypneic, no tripod positioning and no use of accessory muscles Cardiovascular: Regular rate and rhythm. Normal S1 and S2 Skin: No rashes or lesions noted Neuro: Patient oriented x3 Extremities: Normal to inspection and Yes no clubbing, cyanosis or edema PFSH Medical History No known health problems Surgical History No history of previous surgery Social History Alcohol intake: current Alcohol intake frequency: 0-2 drinks per day Alcohol type: wine Patient Tobacco Use Status: Never used Tobacco Physical Exam Vital Signs: Last Vital Signs Temp 98.2 F 04/24/25 07:08 Pulse 73 04/24/25 07:08 BP 124/76 04/24/25 07:08 Pulse Ox 94 04/24/25 07:08 Oxygen Delivery Method Room Air 04/24/25 07:08 BMI result Body Mass Index 31.6 Assessment & Plan Assessment & Plan (1) URI, acute: Code(s): J06.9 - Acute upper respiratory infection, unspecified Plan: Plan Patient was informed and verbally consented to the use of an ambient scribe for clinic note documentation during this visit. - VSS, pt well appearing and PE unremarkable. - Plan includes symptomatic treatment with decongestants and antihistamines such as Caryl-D or Mucinex with an allergy pill or similar. - Patient advised to rest and hydrate to aid recovery. - Nasal swab testing for influenza, COVID-19, and RSV was conducted to rule out these infections. Orders: Orders SARS-CoV2/FLU/RSV Today R09.89 - Other specified symptoms and signs involving the circulatory and respiratory systems Coding Level of Care Code Est Pt Level 3 (27673) Diagnoses URI, acute J06.9
[2025-04-24 07:08] VITALS: BP 124/76; PULSE 73; TEMP 36.8; O2SAT 100; BMI 31.6
--- OUTSIDE RECORDS SUMMARY | 2025-04-24 07:08 | XMS_ITS ---
Author Name [facility] Organization Unknown Care Team Organization Name Specialty Phone Email Start Date End Da te [facility] 04/02/2025 [facility] 04/02/2025
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
--- OUTSIDE RECORDS SUMMARY | 2025-04-24 07:08 | XMS_ITS | Clinical Summary ---
Author Organization [facility] Address [address] [facility] [address] [place] [phone] Phone Care Team Providers Care Diabetes Nurse Name Role Phone Pcp, Unknown Primary Care Provider Unavailabl e Immunizations Immunization Administration Dates Next Due COVID-19 (Pre-04/18) Ernestine Vaccine, [id number], P F 08/30/2020 Social History Tobacco Use Types Packs/Day Years Used Date Smoking Tobacco: Never Assessed Education Answer Date Recorded Are you interested in more education? Not on meron e 10/22/2022 Are you concerned about learning? Not on file 10/22/2022 No 10/22/2022 No 10/22/2022 Digital Access Answer Date Recorded No 11/22/2022 No 11/22/2022 No 11/22/2022 Reliable internet access at home? Not on file 11/22/2022 Device with a working camera? Not on file Sex and Gender Information Value Date Recorded Sex Assigned at Not on file Legal Sex Male 10:06 PM EDT Gender Identity Not on file Sexual Orientation Not on file Plan of Treatment Health Maintenance Due Date Last Done Comments Adult Td,Tdap Booster 1945 LIPID PANEL 1947 DEPRESSION SCREENING 1959 SMOKING Hx and SMOKELESS TOBACCO SCREENING 1960 HEPATITIS C SCREENING 1965 PNEUMOCOCCAL VACCINES (50+ years) (1 of 1 - PCV) 1997 RSV VACCINE (1 - 1-dose 75+ series) 2022 INFLUENZA VACCINE (#1) 2025 03/14/2021 COVID-19 VACCINE ( season) 2025 04/01/2023, 03/08/2022, 10/02/2021, Additional history exists ZOSTER VACCINES Completed 09/10/2023, 04/01/2023 HEPATITIS A VACCINES Aged Out No long er eligible based on patient's age to complete this topic HIB VACCINES Aged Out No longer eligi ble based on patient's age to complete this topic MENINGOCOCCAL VACCINES (ACWY) Aged Out No longer eligible based on patient's age to complete this topic MENINGOCOCCAL VACCINES (B) Aged Out N o longer eligible based on patient's age to complete this topic Medical Devices Not on file [place] [id number] [employer] SUPPLEMENT MEDICARE PART A & B [employer] SUPPLEMENT MEDICARE PART A & B [employer] SUPPLEMENT MEDICARE PART A & B Member Subscriber Plan / Payer ( fective 2012-Present) Name:Zak Huynh Member ID:[id number] Relation to Subscriber:Self Name:Zak Huynh Subscriber ID:[id number] Payer ID:[id number] Group ID:Not on file Type:Medicare Address: [facility] [employer] [address] [place] [phone] [employer] MEDEX SUPPLEMENT MEDICARE PART A & B [employer] SUPPLEMENT MEDICARE PART A & B [employer] SUPPLEMENT MEDICARE PART A & B [employer] SUPPLEMENT MEDICARE PART A & B [employer] SUPPLEMENT MEDICARE PART A & B [employer] MEDEX SUPPLEMENT Care Teams Diabetes Nurse Relationship Specialty Start Date End Date Pcp, Unknown PCP - General 08/26/20 Additional Source Comments The information contained in this document represents components of the legal health record. It is not the complete legal health record.[facility]
--- OUTSIDE RECORDS SUMMARY | 2025-04-24 07:08 | XMS_ITS | Patient Health Record ---
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 Role Phone Bhavesh Baldwin Unavailable [phone] Allergies Allergen (clinical drug ingredient) Drug/Non Drug Allergy documented on EMR Reaction Allergy Type Onset Date Status Niaspan Unknown Drug Allergy Active Reason For Referral No Information Medications Medication SIG (Take, Route, Fr equency, Duration) Notes Start Date End Date Status Lisinopril Active Metoprolol Succinate Active Zetia Active Atorvastatin Calcium Active Immunizations Vaccine Route Administration Date Status Comme nts Influenza Unknown 02/26/2024 Administered Social History Tobacco Use: Social History Observation Description Date Details (start date - stop date) Never Smoker NA - NA Tobacco use other than smoking: Question Answer Notes Are you an other tobacco user? No Tobacco Control (Standard) Question Answer Notes Tobacco use: Nonsmoker AUDIT-C (Standard) Question Answer Notes Did you have a drink contain ing alcohol in the past year? Yes How often did you have a dri nk containing alcohol in the past year? Monthly or less (1 point) How many drinks did you have on a typical day when you were drinking in the past year? 1 or 2 drinks (0 point) How often did you have six o r more drinks on one occasion in the past year? Less than monthly (1 point) Points 2 Interpretation Negative Problems Problem Type SNOMED Code ICD Code Onset Dates Problem Status W/U Status Risk Notes Problem Bilateral atherosclerosis of arteries of lower limbs (disorder) ([id number] ) Atherosclerosis of [place] artery of both lower extremities, with unspecified presence of clinical manifestation (I70.203) Active confirmed Q7(A), Q8(2B), Q9(1B,2 C) Vital Signs Blood pressure diastolic 80 mm Hg 02/26/2025 Height 5 ft 8 in in 02/26/2025 Blood pressure systolic 131 mm Hg 02/26/2025 Weight 205 lbs 02/26/2025 BMI 31.17 kg/m2 02/26/2025 Procedures Procedure Date Ordered Date Performed Result Body Sit e 96858-ILZPSVT NAIL, 6 OR MORE 02/26/2025 N/A 07886-YEWT SKIN LESIONS, OVER 4 02/26/2025 N/A Encounters Encounter Location Date Provider Diagnosis [address] [address] 02/26/2025 Bhavesh Baldwin Atherosclerosis of n ative artery of both lower extremities, with unspecified presence of clinical manifestation I70.203 ; Tinea unguium B35.1 ; Pain in right toe(s) M79.674 ; Pain in left toe(s) M79.675 ; Other hammer toe(s) (acquired), right foot M20.41 ; Arthritis of joint of lesser toe, right M19.071 ; Other hammer toe(s) (acquired), left foot M20.42 ; Arthritis of joint of lesser toe, left M19.072 and Subluxation of metatarsophalangeal joint of toe, initial encounter S93.149A [address] [address] 02/20/2025 Bhavesh Baldwin Assessments Encounter Date Diagnosis (ICD Code) Assessment Notes Treatment Notes Treatment Clinical Notes Section Notes 02/26/2025 Tinea unguium (ICD-1 0 - B35.1) 02/26/2025 Atherosclerosis of [place] artery of both lower extremities, with unspecified presence of clinical manifestation (ICD-10 - I70.203) Q7(A), Q8(2B), Q9(1B,2C) 02/26/2025 Pain in right toe(s) (ICD-10 - M79.674) 02/26/2025 Pain in left toe(s) (ICD-10 - M79.675) 02/26/2025 Other hammer toe(s) (acquired), right foot (ICD-10 - M20.41) 02/26/2025 Arthritis of joint o f lesser toe, right (ICD-10 - M19.071) 02/26/2025 Other hammer toe(s) (acquired), left foot (ICD-10 - M20.42) 02/26/2025 Arthritis of joint o f lesser toe, left (ICD-10 - M19.072) 02/26/2025 Subluxation of metatarsophalangeal joint of toe, initial encounter (ICD-10 - S93.149A) Plan Of Treatment Pending Test Test Name Order Date [id number] NAIL, 6 OR MORE 02/26/2025 64442-YPWO SKIN LESIONS, OVER 4 02/27/20 25 Next Appt Details Provider Name:Bhavesh Baldwin , 06/12/2025 11:15:00 AM, [address] [facility], [facility] [address], [place], [address], Insurance Providers Payer Name Payer Address Payer Phone Subscriber Number Group Number Insured Name Patient Relationship to Insured Coverage Start Date Coverage End Date Medicare [employer] [address] [place] [address] [id number] Zak Huynh Self - patient is the insured 2 [employer] [address] [place] [address] [phone] [id number] Zak Huynh Self - patient is the insured 2 Medical (General) History Medical History History ICD Code Covid-19 Measles Chicken Pox Hypercholesterolemia
== END 2025-04-24 07:42 | disposition home or self-care (01) ==
PROVIDERS: PCP Internal Medicine; Visit Provider Physician Assistant
DX: J06.9 Acute upper respiratory infection, unspecified (principal)